=== PATIENT | male | born 1935 | race Asian ===

== ENCOUNTER 2018-08-15 10:56 | Emergency (ER) | payer OTHER ==
[~2018-08-15] VITALS: Ht 167.6 cm; Wt 70.0 kg
[2018-08-15 10:59] VITALS: Ht 167.6 cm; Wt 70.0 kg
[2018-08-15] MEDS ORDERED: TML25OP5 BOTH EYES (11:48)
[2018-08-15] MEDS ORDERED: PRED5DRO20 BOTH EYES (11:48)
[2018-08-15] MEDS ORDERED: ENAL5TAB PO (11:49)
[2018-08-15] MEDS ORDERED: CARB1TAB34 PO (11:50)
[2018-08-15] MEDS ORDERED: SIMV40TA2 PO (11:50)
[2018-08-15] MEDS ORDERED: LEVO25TA6 PO (11:50)
[2018-08-15] MEDS ORDERED: METF100010 PO (11:51)
[2018-08-15] MEDS ORDERED: INSU100I12 SQ (11:52)
[2018-08-15] MEDS ORDERED: KETOROLAC 30 MG INJ IM STA (12:09)
--- NOTE | 2018-08-15 12:19 | ERD ---
ER Documentation Chief Complaint Chief Complaint rt knee pain fell last night HPI This is an 83-year-old man with a history of osteoarthritis presenting with right knee pain x3 days. His and clerical adviser are at the bedside and state he had a fall yesterday onto his right side but he does recall the entire episode and there was no head or neck injury. Patient has been able to ambulate since the fall and denies any hip pain, swelling, deformity. Patient denies knee redness or swelling, denies fevers or chills, no headache or blurry vision, no chest pain or shortness of breath, no abdominal pain. ROS All systems reviewed and are negative except as per history of present illness. Medications Home Meds Active Scripts Lidocaine HCl/Menthol (Icy Hot 4%-1% Cream) 76.5 Gm Cream..g., 76.5 GM TP TID PRN for PAIN, #1 TUB Prov:KARAN YANCEY MD 08/15/18 Meloxicam* (Meloxicam*) 7.5 Mg Tablet, 7.5 MG PO DAILY PRN for PAIN, #30 TAB Prov:KARAN YANCEY MD 08/15/18 Reported Medications Insulin Lispro (Humalog Kwikpen U-100) 100 Unit/1 Ml Insuln.pen, 0 SQ BID, EA INJECT 20 UNITS-QAM AND 12 UNITS-QPM 08/15/18 Metformin Hcl* (Metformin Hcl*) 1,000 Mg Tablet, 1000 MG PO WITH BREAKFAST DINNE, #60 TAB 08/15/18 Simvastatin* (Zocor*) 40 Mg Tablet, 40 MG PO QHS, #30 TAB 08/15/18 Levothyroxine Sodium* (Levothyroxine Sodium*) 25 Mcg Tablet, 25 MCG PO BEFORE BREAKFAST, #30 TAB 08/15/18 Carbidopa/Levodopa (Carbidopa-Levodopa 25-100 Tab) 1 Each Tablet, 1 EACH PO TID, TAB 08/15/18 Enalapril Maleate* (Enalapril Maleate*) 5 Mg Tablet, 5 MG PO DAILY, TAB 08/15/18 Prednisolone Acetate* (Pred Forte*) 5 Ml Susp, 1 DROP BOTH EYES QID, EA 08/15/18 Timolol Maleate* (Timoptic*) 0.25%-5ml Opht, 1 DROP BOTH EYES BID, #1 EA 08/15/18 Allergies Allergies: Coded Allergies: No Known Allergy (Unverified , 08/15/18) PMhx/Soc Osteoarthritis, hypothyroidism, hypertension, diabetes mellitus History of Surgery: Yes (L KNEE, CATARRACT) Hx Neurological Disorder: Yes (PARKINSON'S) Hx Miscellaneous Medical Probl: Yes (DM) Hx Alcohol Use: No Hx Substance Use: No Hx Tobacco Use: No Smoking Status: Never smoker FmHx Family History: No diabetes Physical Exam Vitals Vital Signs Date Temp Pulse Resp B/P (MAP) Pulse Ox O2 O2 Flow FiO2 Time Delivery Rate 08/15/18 97.9 86 17 155/74 99 10:59 (101) Physical Exam Const: No acute distress, afebrile HEENT: Normocephalic atraumatic, no cervical spine deformity or tenderness, no goiter Resp: Clear to auscultation bilaterally Cardio: Regular rate and rhythm, no murmurs Skin: No petechiae or rashes, no hematomas, abrasions, lacerations noted Back: No midline or flank tenderness Ext: No cyanosis, or edema, calves symmetrical, varus deformity to the knees bilaterally with osteoarthritic changes and crepitus during flexion and extension at the knees. Knees are without erythema, contusions or abrasions. No knee effusions noted Neur: Awake and alert x3, no focal deficits or facial asymmetry Psych: Normal Mood and Affect Results 24 hrs Current Medications Medications Dose Sig/Juan Start Time Status Last (Trade) Ordered Route PRN Stop Time Admin Dose Reason Admin Ketorolac 30 mg ONCE STAT 08/15/18 DC 08/15/18 Tromethamine IM 12:09 12:30 (Toradol) 08/15/18 12:10 Procedures/MDM I administered Toradol 30 mg IM x1. X-ray right knee 3V Interpreted by me: Bones: No fracture Joints: Diffuse osteoarthritic changes Foreign body: None X-ray Pelvis 1V Interpreted by me: Bones: No fracture Joints: No dislocation Foreign body: None Oscar wrap was applied to the right knee circumferentially for comfort and supportive measures. Splint Assessment: Neurovascularly intact post splint placement with good fit. Patient feels much better at this time, and vital signs are normal, symptoms have improved. I did give strict instructions to return to the ED if symptoms continue or worsen, patient will otherwise follow-up with primary care physician. Patient understood instructions and agreed to plan. Disclaimer: Inadvertent spelling and grammatical errors are likely due to EHR/dictation software use and do not reflect on the overall quality of patient care. Also, please note that the electronic time recorded on this note does not necessarily reflect the actual time of the patient encounter. Departure Diagnosis: Primary Impression: Knee sprain Encounter type: initial encounter Involved ligament of knee: unspecified ligament Laterality: right Qualified Codes: S83.91XA - Sprain of unspecified site of right knee, initial encounter Additional Impression: Osteoarthritis Osteoarthritis location: knee Osteoarthritis type: primary Laterality: bilateral Qualified Codes: M17.0 - Bilateral primary osteoarthritis of knee Condition: KARAN Green MD August 15, 2018 12:19
[2018-08-15] MEDS ORDERED: LIDO76.53 TP (12:45)
[2018-08-15] MEDS ORDERED: MELO7.5T38 PO (12:45)
[2018-08-15 14:04] VITALS: BP 139/75; PULSE 72; RESP 18
== END 2018-08-15 14:14 | disposition home or self-care (01) ==
LOC: E/R 10:56
DX: S83.91XA Sprain of unspecified site of right knee, initial encounter (principal); M17.0 Bilateral primary osteoarthritis of knee; E03.9 Hypothyroidism, unspecified; E11.9 Type 2 diabetes mellitus without complications; I10 Essential (primary) hypertension; W18.39XA Other fall on same level, initial encounter; Y92.9 Unspecified place or not applicable; Z79.4 Long term (current) use of insulin
CPT/HCPCS: 72170; 73562; 96372; 99284; J1885

== ENCOUNTER 2018-10-03 21:33 | Inpatient (IN) | payer OTHER ==
[~2018-10-03] VITALS: Ht 167.6 cm; Wt 79.6 kg
[~2018-10-03 21:33] MED LIST: CARB1TAB34 PO; ENAL5TAB PO; INSU100I12 SQ; LEVO25TA6 PO; LIDO76.53 TP; MELO7.5T38 PO; METF100010 PO; PRED5DRO20 LEFT EYE; SIMV40TA2 PO; TML25OP5 BOTH EYES
[2018-10-03] MEDS ORDERED: SOD CHLORIDE 0.9% 1,000 ML IV STA (21:59)
[2018-10-03] MEDS ORDERED: ONDANSETRON 4 MG INJ IV STA (21:59)
[2018-10-03] MEDS ORDERED: VITA1CAP PO (22:59)
[2018-10-03] MEDS ORDERED: ASCO500C7 PO (22:59)
[2018-10-03] MEDS ORDERED: CHOL100062 PO (22:59)
[2018-10-03] MEDS ORDERED: OMEG-135 PO (22:59)
--- NOTE | 2018-10-03 23:39 | ERD ---
ER Documentation Chief Complaint Chief Complaint R889. AP, NVD X 1 DAY. HPI 83-year-old male presenting with 2 days of nausea, vomiting, and loose stools that are nonbloody. Vomiting is nonbloody and nonbilious. He states that when he vomits he has some left-sided abdominal pain. Otherwise he is not having any abdominal pain, dysuria, hematuria, fever or chills. No recent travel. No sick contacts. Denies any headache, dizziness, focal weakness or numbness. He is having normal urine output. ROS All systems reviewed and are negative except as per history of present illness. Medications Home Meds Active Scripts Lidocaine HCl/Menthol (Icy Hot 4%-1% Cream) 76.5 Gm Cream..g., 76.5 GM TP TID PRN for PAIN, #1 TUB Prov:KARAN YANCEY MD 08/15/18 Meloxicam* (Meloxicam*) 7.5 Mg Tablet, 7.5 MG PO DAILY PRN for PAIN, #30 TAB Prov:KARAN YANCEY MD 08/15/18 Reported Medications [place]-3 Fatty Acids/Fish Oil (Fish Oil 1,000 mg Capsule) 1 Each Capsule, 1 EACH PO DAILY, CAP 10/03/18 Ascorbic Acid* (Vitamin C*) 500 Mg Capsule.sa, 500 MG PO DAILY, CAP 10/03/18 Vitamin B Complex (Vitamin B Complex) 1 Each Capsule, 1 EACH PO DAILY, CAP 10/03/18 Cholecalciferol* (Vitamin D3*) 1,000 Unit Tablet, 1000 UNIT PO DAILY, TAB 10/03/18 Insulin Lispro (Humalog Kwikpen U-100) 100 Unit/1 Ml Insuln.pen, 0 SQ BID, EA INJECT 20 UNITS-QAM AND 12 UNITS-QPM 08/15/18 Metformin Hcl* (Metformin Hcl*) 1,000 Mg Tablet, 1000 MG PO WITH BREAKFAST DINNE, #60 TAB 08/15/18 Simvastatin* (Zocor*) 40 Mg Tablet, 40 MG PO QHS, #30 TAB 08/15/18 Levothyroxine Sodium* (Levothyroxine Sodium*) 25 Mcg Tablet, 25 MCG PO BEFORE BREAKFAST, #30 TAB 08/15/18 Carbidopa/Levodopa (Carbidopa-Levodopa 25-100 Tab) 1 Each Tablet, 1 EACH PO TID, TAB 08/15/18 Enalapril Maleate* (Enalapril Maleate*) 5 Mg Tablet, 5 MG PO DAILY, TAB 08/15/18 Prednisolone Acetate* (Pred Forte*) 5 Ml Susp, 1 DROP LEFT EYE QID, EA 08/15/18 Timolol Maleate* (Timoptic*) 0.25%-5ml Opht, 1 DROP BOTH EYES BID, #1 EA 08/15/18 Allergies Allergies: Coded Allergies: No Known Allergy (Unverified , 10/03/18) PMhx/Soc History of Surgery: Yes (RIGHT KNEE) Anesthesia Reaction: No Hx Neurological Disorder: Yes (PARKINSON'S) Hx Respiratory Disorders: No Hx Cardiac Disorders: No Hx Psychiatric Problems: No Hx Miscellaneous Medical Probl: Yes (Diabetes, hypertension, hypothyroidism) Hx Alcohol Use: No Hx Substance Use: No Hx Tobacco Use: No Smoking Status: Never smoker FmHx Family History: No diabetes Physical Exam Vitals Vital Signs Date Temp Pulse Resp B/P (MAP) Pulse Ox O2 O2 Flow FiO2 Time Delivery Rate 10/03/18 78 18 137/47 98 Nasal 2.0 23:29 (77) Cannula 10/03/18 98.1 74 19 169/96 96 21:42 (120) Physical Exam Const: No acute distress, well-appearing, nontoxic Head: Atraumatic Eyes: Normal Conjunctiva ENT: Normal External Ears, Nose and Mouth. Neck: Full range of motion. No meningismus. Resp: Clear to auscultation bilaterally Cardio: Regular rate and rhythm, no murmurs Abd: Soft, mild left lower quadrant tenderness to deep palpation without rebound or guarding. No pulsatile masses. non distended. Normal bowel sounds Skin: No petechiae or rashes Back: No midline or flank tenderness Ext: No cyanosis, or edema Neur: Awake and alert, no facial asymmetry, normal speech, following commands. strength and sensations intact to all 4 extremities Psych: Normal Mood and Affect Result Diagram: 10/03/18220610/03/182206 Results 24 hrs Laboratory Tests Test 10/03/18 22:07 White Blood Count 6.8 10^3/ul Red Blood Count 2.93 10^6/ul Hemoglobin 9.1 g/dl Hematocrit 27.6 % Mean Corpuscular Volume 94.2 fl Mean Corpuscular Hemoglobin 31.1 pg Mean Corpuscular Hemoglobin Concent 33.0 g/dl Red Cell Distribution Width 13.2 % Platelet Count 287 10^3/UL Mean Platelet Volume 10.1 fl Immature Granulocytes % 0.100 % Neutrophils % 66.6 % Lymphocytes % 20.2 % Monocytes % 11.5 % Eosinophils % 1.0 % Basophils % 0.6 % Nucleated Red Blood Cells % 0.0 /100WBC Immature Granulocytes # 0.010 10^3/ul Neutrophils # 4.6 10^3/ul Lymphocytes # 1.4 10^3/ul Monocytes # 0.8 10^3/ul Eosinophils # 0.1 10^3/ul Basophils # 0.0 10^3/ul Nucleated Red Blood Cells # 0.0 10^3/ul Sodium Level 140 mmol/L Potassium Level 4.8 mmol/L Chloride Level 102 mmol/L Carbon Dioxide Level 16 mmol/L Anion Gap 22 Blood Urea Nitrogen 61 mg/dl Creatinine 8.54 mg/dl Est Glomerular Filtrat Rate mL/min mL/min Glucose Level 76 mg/dl Calcium Level 11.0 mg/dl Total Bilirubin 0.3 mg/dl Direct Bilirubin 0.00 mg/dl Indirect Bilirubin 0.3 mg/dl Aspartate Amino Transf (AST/SGOT) 19 IU/L Alanine Aminotransferase (ALT/SGPT) 8 IU/L Alkaline Phosphatase 55 IU/L Troponin I 0.018 ng/ml Total Protein 7.1 g/dl Albumin 3.8 g/dl Globulin 3.30 g/dl Albumin/Globulin Ratio 1.15 Lipase 166 U/L Current Medications Medications Dose Sig/Juan Start Time Status Last (Trade) Ordered Route PRN Stop Time Admin Dose Reason Admin Sodium 1,000 ml @ Q1H STAT 10/03/18 DC 10/03/18 Chloride 1,000 mls/hr IV 21:59 22:35 10/03/18 22:58 Ondansetron 4 mg ONCE STAT 10/03/18 DC 10/03/18 HCl (Zofran IV 21:59 22:35 Inj) 10/03/18 22:00 Ondansetron 4 mg BRIDGE ORDER 10/04/18 HCl (Zofran PRN IV 00:00 Inj) NAUSEA/VOMITI 10/04/18 23:59 NG 650 mg ER BRIDGE 10/04/18 Acetaminophen PRN PO 00:00 (Tylenol .MILD PAIN 10/04/18 23:59 Tab) 1-3 OR TEMP Ascorbic 500 mg DAILY PO 10/04/18 UNV Acid 09:00 (Vitamin C) 1 tab TID PO 10/04/18 UNV Carbidopa/Lev 09:00 odopa (Sinemet (25/ 100)) 1,000 unit DAILY PO 10/04/18 UNV Cholecalcifer 09:00 ol (Vitamin D) Enalapril 5 mg DAILY PO 10/04/18 UNV Maleate 09:00 (Vasotec) 25 mcg BEFORE 10/04/18 UNV Levothyroxine BREAKFAST 07:00 Sodium PO (Synthroid) 1 drop QID LEFT 10/04/18 UNV Prednisolone EYE 00:30 Acetate (Pred-Forte 1%) Timolol 1 drop BID BOTH 10/04/18 UNV Maleate EYES 00:30 (Timoptic 0.25%) 40 mg QHS PO 10/04/18 UNV Miscellaneous 21:00 Information Procedures/[facility] EMERGENT LABS AND DIAGNOSTIC STUDIES: Lab Results above were reviewed and interpreted by me. CBC: no anemia or evidence of infection CMP: Acute renal failure with elevated BUN and creatinine and evidence of acidosis. No evidence of clinically significant electrolyte abnormality Lipase: no evidence of pancreatitis Troponin within normal limits, not indicative of cardiac ischemia UA: pending 12-lead EKG was interpreted by Robles Finney MD: Normal Sinus Rhythm with ventricular rate of 75 beats per minute Normal axis Normal intervals No acute ST or T wave changes suggestive of acute ischemia or STEMI. Radiology Results as interpreted by Radiology below were reviewed by SMandy Finney MD: Chest x-ray shows no acute abnormalities CT abdomen and pelvis: IMPRESSION: Extensive retroperitoneal and bilateral common iliac artery lymphadenopathy. No masses detected. Question lymphoma versus metastatic disease. These nodes are amendable to CT guided biopsy. Vascular calcifications. Fatty liver. Cholelithiasis. Multiple bilateral less than 3 mm nonobstructing renal calculi. Initial Nursing notes reviewed. Previous Medical Records requested via the Electronic Health Record. EMERGENCY DEPARTMENT COURSE / MEDICAL DECISION MAKING: Patient is presenting with nausea and vomiting with no evidence of acute surgical abdomen or any evidence of infection on work-up. Doubt ischemic bowel or aortic dissection. No evidence of ACS. Doubt acute neurologic pathology. Labs did show evidence of acute renal failure with elevated BUN and creatinine. IV fluids started in the ER. Patient will be admitted for further work-up and management. Critical Care Time: 40 minutes Treatments/Evaluations: Close monitoring and treatment of unstable vital signs, cardiorespiratory, and neurologic status, while maintaining tight balance of fluid, respiratory, and cardiac interventions. This time includes discussing the case with the patient and the patients family. This time does not include all procedures stated elsewhere in this record. This time also includes reviewing old records, labs and radiological studies. This time includes examining and re- examining the patient. Additionally, this time also includes arranging care with admitting and consulting physicians. Accepting Care Team: Current data and ongoing care discussed. Time: Time of admission Primary Provider: Dr. Reji Sierra Diagnosis: Primary Impression: Acute renal failure Acute renal failure type: unspecified Qualified Codes: N17.9 - Acute kidney failure, unspecified Additional Impression: Nausea vomiting and diarrhea Condition: Serious KATALINA FINNEY MD Oct 03, 2018 23:39
[2018-10-04] MEDS ORDERED: ONDANSETRON 4 MG INJ IV PRN ×2 (00:30)
[2018-10-04] MEDS ORDERED: morphine 2 MG INJ IV PRN (00:30)
[2018-10-04] MEDS ORDERED: ACETAMINOPHEN 325 MG TAB PO PRN ×2 (00:30)
[2018-10-04] MEDS ORDERED: NACL 0.9% 3 ML SYG IV SCH (00:30)
[2018-10-04] MEDS ORDERED: DOCUSATE SODIUM 100 MG CAP PO PRN (00:30)
[2018-10-04 01:42] VITALS: Ht 167.6 cm; Wt 79.6 kg
[2018-10-04 01:45] VITALS: BP 164/74; PULSE 76; RESP 18
[2018-10-04] MEDS: SOD CHLORIDE 0.9% 1,000 ML IV SCH ×3 (02:46→14:43)
[2018-10-04] MEDS: FAMOTIDINE 20 MG INJ IV SCH ×2 (02:46→08:27)
[2018-10-04] MEDS: HEPARIN 5,000 UNIT/1 ML VIAL SC SCH ×3 (02:55→21:00)
[2018-10-04] MEDS: TIMOLOL 0.25% 5 ML OPH BOTH EYES SCH ×3 (03:17→21:15)
[2018-10-04] MEDS: PREDNISOLONE ACET 1% 5 ML OPH LEFT EYE SCH ×5 (03:18→21:15)
[2018-10-04 05:29] VITALS: BP 149/67; PULSE 70
[2018-10-04] MEDS ORDERED: INSULIN LISPRO 100 UNIT/ML VIAL SC SCH (07:00)
[2018-10-04] MEDS: LEVOTHYROXINE 25 MCG TAB PO SCH (07:01)
[2018-10-04 07:46] VITALS: BP 178/81; PULSE 71; RESP 19
[2018-10-04] MEDS: CHOLECALCIFEROL 1,000 UNIT TAB PO SCH (08:27)
[2018-10-04] MEDS: CARBIDOPA/LEVODOPA (25/100) TAB PO SCH ×3 (08:28→21:15)
[2018-10-04] MEDS: ASCORBIC ACID 500 MG TAB PO SCH (08:28)
[2018-10-04] MEDS ORDERED: ENALAPRIL 5 MG TAB PO SCH (09:00)
[2018-10-04] MEDS: INSULIN ASPART [NOVOLOG] 3 ML PEN SC SCH ×3 (10:32→17:54)
--- NOTE | 2018-10-04 13:22 | CONS ---
Assessment/Plan Assessment/Plan Assessment/Plan (Daily) 1 acute Kidney injury possible due to Prerenal azotemia + ATN 2. Hypercalcemia possibly due to malignancy associated Hypercalcemia 3. Retroperitoneal lymphadenopathy rule out malignacy 4. H/O HTN with currently accelerated HTN 5. H/o DM II 6. Metabolic acidosis Plan: IVF NS at 100 cc/hr D/c Enalapril, will give Nifedipine Xl 30 mg po x1 dose now then 30mg po daily from tomorrow CT scan abdomen and pelvis showed extensive retroperitoneal and bilateral common iliac artery lymphadenopathy. This was suspicious for lymphoma versus metastatic disease. There was evidence of cholelithiasis. Multiple bilateral less than 3 mm nonobstructing renal calculi were identified. CT guided Biopsy of Retroperitoneal lymphadenopahty has been ordered to rule out malignancy Thanks for consultation , I will continue to follow up Consultation Date/Type/Reason Admit Date/Time Oct 03, 2018 at 23:36 Date of Consultation: Oct 04, 2018 Type of Consult NEPHROLOGY Reason for Consultation acute hyperkalemia, acute renal failure Requesting Provider: KWADWO NORRIS MD Date/Time of Note DATE: 10/04/18 TIME: 13:22 Hx of Present Illness 83-year-old male with a history of hypertension, type 2 diabetes mellitus, and Parkinson's disease, presented to the Emergency Room with 2 days of abdominal pain associated with nausea, vomiting and diarrhea. Labs were notable for BUN of 59 and creatinine of 8.3., ca 11 on admission . CBC showed a WBC of 6.9, hemoglobin of 9.4 and platelet count of 291,000. CAT scan of the abdomen and pelvis showed extensive retroperitoneal and bilateral common iliac artery lymphadenopathy. This was suspicious for lymphoma versus metastatic disease. There was evidence of cholelithiasis. Multiple bilateral less than 3 mm nonobstructing renal calculi were identified. Renal has been consulted for acute renal faiulre, Hypercalcemia and Pt is ordered to have CT guided Bx of Retroperitoneal lymph nodes Constitutional: no complaints Eyes: no complaints ENT: no complaints Respiratory: no complaints Cardiovascular: no complaints Gastrointestinal: pain, diarrhea, nausea, vomiting Genitourinary: no complaints Musculoskeletal: no complaints Skin: no complaints Neurologic: no complaints Endocrine: no complaints Lymphatic: no complaints Psychological: no complaints Immunologic: no complaints Past Medical History Medical History: diabetes, hypertension, other (hypertension, type 2 diabetes mellitus, and Parkinson's disease,) Home Meds Active Scripts Lidocaine HCl/Menthol (Icy Hot 4%-1% Cream) 76.5 Gm Cream..g., 76.5 GM TP TID PRN for PAIN, #1 TUB Prov:KARAN YANCEY MD 08/15/18 Meloxicam* (Meloxicam*) 7.5 Mg Tablet, 7.5 MG PO DAILY PRN for PAIN, #30 TAB Prov:KARAN YANCEY MD 08/15/18 Reported Medications [place]-3 Fatty Acids/Fish Oil (Fish Oil 1,000 mg Capsule) 1 Each Capsule, 1 EACH PO DAILY, CAP 10/03/18 Ascorbic Acid* (Vitamin C*) 500 Mg Capsule.sa, 500 MG PO DAILY, CAP 10/03/18 Vitamin B Complex (Vitamin B Complex) 1 Each Capsule, 1 EACH PO DAILY, CAP 10/03/18 Cholecalciferol* (Vitamin D3*) 1,000 Unit Tablet, 1000 UNIT PO DAILY, TAB 10/03/18 Insulin Lispro (Humalog Kwikpen U-100) 100 Unit/1 Ml Insuln.pen, 0 SQ BID, EA INJECT 20 UNITS-QAM AND 12 UNITS-QPM 08/15/18 Metformin Hcl* (Metformin Hcl*) 1,000 Mg Tablet, 1000 MG PO WITH BREAKFAST DINNE, #60 TAB 08/15/18 Simvastatin* (Zocor*) 40 Mg Tablet, 40 MG PO QHS, #30 TAB 08/15/18 Levothyroxine Sodium* (Levothyroxine Sodium*) 25 Mcg Tablet, 25 MCG PO BEFORE BREAKFAST, #30 TAB 08/15/18 Carbidopa/Levodopa (Carbidopa-Levodopa 25-100 Tab) 1 Each Tablet, 1 EACH PO TID, TAB 08/15/18 Prednisolone Acetate* (Pred Forte*) 5 Ml Susp, 1 DROP LEFT EYE QID, EA 08/15/18 Timolol Maleate* (Timoptic*) 0.25%-5ml Opht, 1 DROP BOTH EYES BID, #1 EA 08/15/18 Discontinued Reported Medications Enalapril Maleate* (Enalapril Maleate*) 5 Mg Tablet, 5 MG PO DAILY, TAB 08/15/18 Medications Current Medications Ascorbic Acid (Vitamin C) 500 mg DAILY PO Last administered on 10/04/18at 08:28; Admin Dose 500 MG; Start 7/11/19 at 09:00 Carbidopa/Levodopa (Sinemet (25/ 100)) 1 tab TID PO Last administered on 10/04/18 08:28; Admin Dose 1 TAB; Start 10/04/18 at 09:00 Cholecalciferol (Vitamin D) 1,000 unit DAILY PO Last administered on 10/04/18 08:27; Admin Dose 1,000 UNIT; Start 10/04/18 at 09:00 Levothyroxine Sodium (Synthroid) 25 mcg BEFORE BREAKFAST PO Last administered on 10/04/18 07:01; Admin Dose 25 MCG; Start 10/04/18 at 07:00 Prednisolone Acetate (Pred-Forte 1%) 1 drop QID LEFT EYE ; Start 10/04/18 at 00:30 Timolol Maleate (Timoptic 0.25%) 1 drop BID BOTH EYES Last administered on 10/04/18 08:51; Admin Dose 1 DROP; Start 10/04/18 at 00:30 Sodium Chloride 1,000 ml @ 100 mls/hr Q10H IV Last administered on 10/04/18 02:46; Admin Dose 100 MLS/HR; Start 10/04/18 at 00:22 IV Flush (NS 3 ml) 3 ml PER PROTOCOL IV Last administered on 10/04/18 08:32; Admin Dose 3 ML; Start 10/04/18 at 00:30 Ondansetron HCl (Zofran Inj) 4 mg Q6H PRN IV NAUSEA/VOMITING; Start 10/04/18 at 00:30 Acetaminophen (Tylenol Tab) 650 mg Q6H PRN PO .PAIN 1-3 OR TEMP; Start 10/04/18 at 00:30 Morphine Sulfate (morphine) 2 mg Q4H PRN IV .PAIN 7-10; Start 10/04/18 at 00:30 Docusate Sodium (Colace) 100 mg Q12H PRN PO .CONSTIPATION; Start 10/04/18 at 00:30 Famotidine (Pepcid Iv) 20 mg DAILY IV Last administered on 10/04/18 08:27; Admin Dose 20 MG; Start 10/04/18 at 00:30 Heparin Sodium (Porcine) (Heparin (5000 Units/1ml)) 5,000 unit Q12 SC Last administered on 7/11/19at 08:30; Admin Dose 5,000 UNIT; Start 10/04/18 at 00:30 Atorvastatin Calcium (Lipitor) 20 mg DAILY@21 PO ; Start 10/04/18 at 21:00 Insulin Aspart (Novolog Insulin Pen) 5 unit AC MEALS SC Last administered on 10/04/18at 10:32; Admin Dose 5 UNIT; Start 10/04/18 at 07:00 Allergies: Coded Allergies: No Known Allergy (Unverified , 10/03/18) Past Surgical History Past Surgical Hx: no surgical history Family History Significant Family History: no pertinent family hx Social History Alcohol Use: none Smoking Status: Never smoker Drug Use: none Exam/Review of Systems Exam Vitals Vital Signs Date Temp Pulse Resp B/P (MAP) Pulse Ox O2 O2 Flow FiO2 Time Delivery Rate 10/04/18 98.3 71 19 178/81 97 Room Air 07:46 (113) 10/04/18 21 02:57 10/03/18 2.0 23:29 Intake and Output 10/03/18 10/03/18 10/04/18 1515:00 23:00 07:00 IntakeIntake Total 225 ml OutputOutput Total 225 ml BalanceBalance 0 ml Constitutional: alert Psych: no complaints Head: normocephalic Eyes: nl conjunctiva ENMT: nl external ears & nose Neck: supple, non-tender Respiratory: clear to auscultation, normal air movement, diminished breath sounds Cardiovascular: regular rate and rhythm Gastrointestinal: soft, non-tender, tender (TTP in Right flank region, No reboudng, no guarding ) Musculoskeletal: nl extremities to inspection Extremities: normal pulses Neurological: [employer] II-XII intact, nl mental status, nl speech, nl strength Skin: nl turgor Lymph: nl lymph nodes Results Result Diagram: 10/04/18 0453 10/04/18 0453 Results 24hrs Laboratory Tests Test 10/03/18 22:07 10/04/18 04:53 10/04/18 08:23 10/04/18 10:21 White Blood Count 6.8 6.9 Red Blood Count 2.93 L 3.04 L Hemoglobin 9.1 L 9.4 L Hematocrit 27.6 L 28.5 L Mean Corpuscular 94.2 93.8 Volume Mean Corpuscular 31.1 30.9 Hemoglobin Mean Corpuscular 33.0 33.0 Hemoglobin Concent Red Cell 13.2 13.2 Distribution Width Platelet Count 287 291 Mean Platelet Volume 10.1 10.6 H Immature 0.100 0.300 Granulocytes % Neutrophils % 66.6 67.5 Lymphocytes % 20.2 18.2 Monocytes % 11.5 H 12.6 H Eosinophils % 1.0 0.7 Basophils % 0.6 0.7 Nucleated Red Blood 0.0 0.0 Cells % Immature 0.010 0.020 Granulocytes # Neutrophils # 4.6 4.7 Lymphocytes # 1.4 1.3 Monocytes # 0.8 0.9 Eosinophils # 0.1 0.1 Basophils # 0.0 0.1 Nucleated Red Blood 0.0 0.0 Cells # Sodium Level 140 140 Potassium Level 4.8 4.9 Chloride Level 102 104 Carbon Dioxide Level 16 L 15 L Anion Gap 22 H 21 H Blood Urea Nitrogen 61 H 59 H Creatinine 8.54 H 8.31 H Est Glomerular Filtrat Rate mL/min Glucose Level 76 73 Calcium Level 11.0 H 10.3 H Total Bilirubin 0.3 Direct Bilirubin 0.00 Indirect Bilirubin 0.3 Aspartate Amino 19 Transf (AST/SGOT) Alanine 8 L Aminotransferase (AL T/SGPT) Alkaline Phosphatase 55 Troponin I 0.018 Total Protein 7.1 Albumin 3.8 Globulin 3.30 H Albumin/Globulin 1.15 Ratio Lipase 166 Prothrombin Time 13.2 Prothrombin Time 1.0 Ratio INR International 0.99 Normalized Ratio Hemoglobin A1c 6.7 H Thyroid Stimulating 2.200 Hormone (TSH) Bedside Glucose 92 105 Test 10/04/18 12:48 Bedside Glucose 93 Medications Medication Current Medications Ascorbic Acid (Vitamin C) 500 mg DAILY PO Last administered on 10/04/18 08:28; Admin Dose 500 MG; Start 10/04/18 at 09:00 Carbidopa/Levodopa (Sinemet (25/ 100)) 1 tab TID PO Last administered on 10/04/18 08:28; Admin Dose 1 TAB; Start 10/04/18 at 09:00 Cholecalciferol (Vitamin D) 1,000 unit DAILY PO Last administered on 10/04/18 08:27; Admin Dose 1,000 UNIT; Start 10/04/18 at 09:00 Levothyroxine Sodium (Synthroid) 25 mcg BEFORE BREAKFAST PO Last administered on 10/04/18 07:01; Admin Dose 25 MCG; Start 10/04/18 at 07:00 Prednisolone Acetate (Pred-Forte 1%) 1 drop QID LEFT EYE ; Start 10/04/18 at 00:30 Timolol Maleate (Timoptic 0.25%) 1 drop BID BOTH EYES Last administered on 10/04/18 08:51; Admin Dose 1 DROP; Start 10/04/18 at 00:30 Sodium Chloride 1,000 ml @ 100 mls/hr Q10H IV Last administered on 10/04/18 02:46; Admin Dose 100 MLS/HR; Start 10/04/18 at 00:22 IV Flush (NS 3 ml) 3 ml PER PROTOCOL IV Last administered on 10/04/18 08:32; Admin Dose 3 ML; Start 10/04/18 at 00:30 Ondansetron HCl (Zofran Inj) 4 mg Q6H PRN IV NAUSEA/VOMITING; Start 10/04/18 at 00:30 Acetaminophen (Tylenol Tab) 650 mg Q6H PRN PO .PAIN 1-3 OR TEMP; Start 10/04/18 at 00:30 Morphine Sulfate (morphine) 2 mg Q4H PRN IV .PAIN 7-10; Start 10/04/18 at 00:30 Docusate Sodium (Colace) 100 mg Q12H PRN PO .CONSTIPATION; Start 10/04/18 at 00:30 Famotidine (Pepcid Iv) 20 mg DAILY IV Last administered on 10/04/18 08:27; Admin Dose 20 MG; Start 10/04/18 at 00:30 Heparin Sodium (Porcine) (Heparin (5000 Units/1ml)) 5,000 unit Q12 SC Last administered on 10/04/18 08:30; Admin Dose 5,000 UNIT; Start 10/04/18 at 00:30 Atorvastatin Calcium (Lipitor) 20 mg DAILY@21 PO ; Start 10/04/18 at 21:00 Insulin Aspart (Novolog Insulin Pen) 5 unit AC MEALS SC Last administered on 10/04/18 10:32; Admin Dose 5 UNIT; Start 10/04/18 at 07:00 LAUREN ARANA MD Oct 04, 2018 13:22
[2018-10-04] MEDS ORDERED: NIFEdipine (XL) 30 MG TAB PO ONE (13:30)
--- NOTE | 2018-10-04 15:34 | HP ---
DATE OF ADMISSION: 10/03/2018 CHIEF COMPLAINT: Abdominal pain, nausea, vomiting and diarrhea. HISTORY OF PRESENT ILLNESS: An 83-year-old male with a history of hypertension, type 2 diabetes treasure itus, and Parkinson's disease, presented to the Emergency Room with 2 days of abdominal pain associat ed with nausea, vomiting and diarrhea. The patient denies hematemesis. No bright red blood per rect um or melena. According to family members there is no history of kidney problems. Initial evaluatio n revealed evidence of renal failure with a BUN of 59 and creatinine of 8.3. Sodium was 4.9 and bica rbonate was 15. CBC showed a WBC of 6.9, hemoglobin of 9.4 and platelet count of 291,000. CAT scan of the abdomen and pelvis showed extensive retroperitoneal and bilateral common iliac artery lymphade nopathy. This was suspicious for lymphoma versus metastatic disease. There was evidence of cholelit hiasis. Multiple bilateral less than 3 mm nonobstructing renal calculi were identified. PAST MEDICAL HISTORY: 1. Hypertension. 2. Type 2 diabetes mellitus. 3. Hyperlipidemia. 4. Parkinson's disease. 5. Glaucoma. 6. Hypothyroidism. MEDICATIONS PRIOR TO ADMISSION: 1. Enalapril 5 mg daily. 2. Fish oil. 3. Simvastatin. 4. Carbidopa/levodopa. 5. Meloxicam. 6. Prednisolone eyedrops. 7. Timolol eyedrop. 8. Insulin. 9. Levothyroxine. 10. Metformin. 11. Ascorbic acid. 12. Vitamin D. 13. Vitamin B supplements. SOCIAL HISTORY: The patient lives at home. He denies tobacco or alcohol use. PHYSICAL EXAMINATION: GENERAL: Well-developed, well-nourished elderly male who is in no apparent distress. VITAL SIGNS: Blood pressure of 178/81, pulse 71. He is afebrile. HEENT: Extraocular muscles intact. Pupils are equal and reactive to light bilaterally. Sclerae are anicteric. Oropharynx is clear and moist. NECK: Supple, no JVD, no carotid bruits. LUNGS: Clear to auscultation bilaterally. CARDIAC: Regular rate and rhythm. No murmurs or gallops. ABDOMEN: Soft, nontender and nondistended, normoactive bowel sounds. EXTREMITIES: No clubbing, cyanosis, or edema. NEUROLOGICAL: Grossly nonfocal. ASSESSMENT: 1. An 83-year-old male with nausea, vomiting and diarrhea. 2. Acute kidney injury versus progressive chronic kidney disease, possibly approaching hemodialysis. 3. Metabolic acidosis. 4. Hypertension. 5. Type 2 diabetes mellitus. 6. Parkinson disease. 7. Hypothyroidism. 8. Diffuse retroperitoneal lymphadenopathy. Rule out lymphoma versus metastatic disease. PLAN: 1. Admit to med/surg. 2. IV fluid hydration. Monitor renal function closely. 3. Nephrology consultation was requested. 4. Proceed with CT-guided biopsy of retroperitoneal lymph node. Dictated By: KWADWO NORRIS MD SK/NTS Conf#: [id number] DID#: [id number] CC: VALENTINO MENEZES MD; LAUREN ARANA MD;*EndCC*
[2018-10-04 15:37] VITALS: BP 137/85; PULSE 73; RESP 19
[2018-10-04] MEDS: CITRIC ACID/NA CITRATE 30 ML CUP PO SCH ×2 (16:24→21:15)
[2018-10-04 19:26] VITALS: BP 158/72; PULSE 69; RESP 18
[2018-10-04] MEDS ORDERED: NON-FORMULARY/PATIENT OWN MED (Simvastatin* (Zocor*) 40 MG) PO SCH (21:00)
[2018-10-04] MEDS ORDERED: ATORVASTATIN 20 MG TAB PO SCH (21:00)
[2018-10-05] MEDS: SOD CHLORIDE 0.9% 1,000 ML IV SCH (01:15)
[2018-10-05 01:18] VITALS: BP 141/65; PULSE 73; RESP 18
[2018-10-05] MEDS: LEVOTHYROXINE 25 MCG TAB PO SCH (06:17)
[2018-10-05 07:43] VITALS: BP 160/74; PULSE 69; RESP 19
[2018-10-05] MEDS: INSULIN ASPART [NOVOLOG] 3 ML PEN SC SCH ×2 (08:00→13:30)
[2018-10-05] MEDS: HEPARIN 5,000 UNIT/1 ML VIAL SC SCH (08:06)
[2018-10-05] MEDS ORDERED: NIFEdipine (XL) 30 MG TAB PO SCH (09:00)
[2018-10-05] MEDS ORDERED: LIDOCAINE 1% (MDV) 20 ML INJ ONE (09:23)
[2018-10-05] MEDS ORDERED: MIDAZOLAM 1 MG/ML 2 ML INJ ONE (10:41)
[2018-10-05] MEDS ORDERED: SOD CHLORIDE 0.9% 500 ML ONE (10:41)
[2018-10-05] MEDS ORDERED: FENTAnyl 50 MCG/ML VIAL ONE (10:41)
[2018-10-05] MEDS ORDERED: INSU100I12 SQ (11:05)
[2018-10-05] MEDS ORDERED: NIFE30TA2 PO (11:05)
[2018-10-05] MEDS ORDERED: BICS PO (11:05)
--- NOTE | 2018-10-05 11:06 | PDOCDIS ---
Discharge Instructions CONDITION [id number] Patient Condition: [id number] Good HOME CARE INSTRUCTIONS: [id number] Diet Instructions: [id number] Activity Restrictions: Pdced9g No Restrictions FOLLOW UP/APPOINTMENTS Follow-up Plan pcp [address] Rogers 1 week KWADWO NORRIS MD Oct 05, 2018 11:06
--- NOTE | 2018-10-05 11:13 | PN ---
Date/Time of Note Date/Time of Note DATE: 10/05/18 TIME: 11:11 Subjective Doing well. No further nausea vomiting. No abdominal pain. No diarrhea Objective Vitals Vital Signs Date Temp Pulse Resp B/P (MAP) Pulse Ox O2 O2 Flow FiO2 Time Delivery Rate 10/05/18 98.2 69 19 160/74 97 07:43 (102) 10/04/18 Room Air 15:37 10/04/18 21 02:57 10/03/18 2.0 23:29 Intake and Output 10/04/18 10/04/18 10/05/18 1515:00 23:00 07:00 IntakeIntake Total 1135 ml 360 ml 1380 ml OutputOutput Total 200 ml 950 ml BalanceBalance 935 ml 360 ml 430 ml Clear to auscultation bilaterally Regular rate and rhythm Soft obese nontender nondistended normoactive bowel sounds No edema Nonfocal Results Result Diagram: 10/04/18 0453 10/05/18 0535 Medications Medications Current Medications Ascorbic Acid (Vitamin C) 500 mg DAILY PO Last administered on 10/04/18 08:28; Admin Dose 500 MG; Start 10/04/18 at 09:00 Carbidopa/Levodopa (Sinemet (25/ 100)) 1 tab TID PO Last administered on 21:15; Admin Dose 1 TAB; Start 10/04/18 at 09:00 Cholecalciferol (Vitamin D) 1,000 unit DAILY PO Last administered on 10/04/18 08:27; Admin Dose 1,000 UNIT; Start 10/04/18 at 09:00 Levothyroxine Sodium (Synthroid) 25 mcg BEFORE BREAKFAST PO Last administered on 10/04/18 07:01; Admin Dose 25 MCG; Start 10/04/18 at 07:00 Prednisolone Acetate (Pred-Forte 1%) 1 drop QID LEFT EYE Last administered on 10/04/18 21:15; Admin Dose 1 DROP; Start 10/04/18 at 00:30 Timolol Maleate (Timoptic 0.25%) 1 drop BID BOTH EYES Last administered on 10/04/18 21:15; Admin Dose 1 DROP; Start 10/04/18 at 00:30 Sodium Chloride 1,000 ml @ 100 mls/hr Q10H IV Last administered on 10/05/18 01:15; Admin Dose 100 MLS/HR; Start 10/04/18 at 00:22 IV Flush (NS 3 ml) 3 ml PER PROTOCOL IV Last administered on 10/04/18 08:32; Admin Dose 3 ML; Start 10/04/18 at 00:30 Ondansetron HCl (Zofran Inj) 4 mg Q6H PRN IV NAUSEA/VOMITING; Start 10/04/18 at 00:30 Acetaminophen (Tylenol Tab) 650 mg Q6H PRN PO .PAIN 1-3 OR TEMP; Start 10/04/18 at 00:30 Morphine Sulfate (morphine) 2 mg Q4H PRN IV .PAIN 7-10; Start 10/04/18 at 00:30 Docusate Sodium (Colace) 100 mg Q12H PRN PO .CONSTIPATION; Start 10/04/18 at 0 0:30 Famotidine (Pepcid Iv) 20 mg DAILY IV Last administered on 10/04/18 08:27; Admin Dose 20 MG; Start 10/04/18 at 00:30 Heparin Sodium (Porcine) (Heparin (5000 Units/1ml)) 5,000 unit Q12 SC Last administered on 10/04/18 08:30; Admin Dose 5,000 UNIT; Start 10/04/18 at 00:30 Atorvastatin Calcium (Lipitor) 20 mg DAILY@21 PO Last administered on 10/04/18 21:15; Admin Dose 20 MG; Start 10/04/18 at 21:00 Insulin Aspart (Novolog Insulin Pen) 5 unit AC MEALS SC Last administered on 10/04/18 17:54; Admin Dose 5 UNIT; Start 10/04/18 at 07:00 Citric Acid/ Sodium Citrate (Bicitra) 30 ml TID PO Last administered on 10/04/18 21:15; Admin Dose 30 ML; Start 10/04/18 at 14:00 Nifedipine (Procardia Xl) 30 mg DAILY PO ; Start 10/05/18 at 09:00 VTE Prophylaxis Risk score (from Nsg)>0 risk: 4 SCD applied (from Nsg): Yes Lines/Catheters IV Catheter Type: Saline Lock Armendariz in Place: No Assessment/Plan Assessment/Plan 83-year-old male with 2 days of nausea, vomiting, diarrhea, resolved Stage V chronic kidney disease. There is no noted improvement with IV fluid hydration Long-standing hypertension Type 2 diabetes mellitus Retroperitoneal lymphadenopathy Parkinson's disease Proceed with CT-guided biopsy of intra-abdominal lymph node Discharge planning home if okay with Dr. Rogers Patient is approaching hemodialysis I spent a long time with multiple family members at the bedside and answered all their questions. KWADWO NORRIS MD Oct 05, 2018 11:13
--- NOTE | 2018-10-05 12:07 | CONS ---
Assessment/Plan Assessment/Plan Assessment/Plan (Daily) 1 acute Kidney injury possible due to Prerenal azotemia + ATN 2. Hypercalcemia possibly due to malignancy associated Hypercalcemia 3. Retroperitoneal lymphadenopathy rule out malignacy 4. H/O HTN with currently accelerated HTN 5. H/o DM II 6. Metabolic acidosis Plan: IVF NS at 100 cc/hr, BUN/Cr 72/8.18 D/swati Enalapril, Nifedipine Xl 30mg PO daily CT scan abdomen and pelvis showed extensive retroperitoneal and bilateral common iliac artery lymphadenopathy. This was suspicious for lymphoma versus metastatic disease. There was evidence of cholelithiasis. Multiple bilateral less than 3 mm nonobstructing renal calculi were identified. CT guided Biopsy of Retroperitoneal lymphadenopahty has been ordered to rule out malignancy Hypercalcemia work up today Follow up with me in clinic in 1 week Consultation Date/Type/Reason Admit Date/Time Oct 03, 2018 at 23:36 Initial Consult Date 10/04/18 Type of Consult NEPHROLOGY Requesting Provider: KWADWO NORRIS MD Date/Time of Note DATE: 10/05/18 TIME: 12:07 Exam/Review of Systems Exam Vitals Vital Signs Date Temp Pulse Resp B/P (MAP) Pulse Ox O2 O2 Flow FiO2 Time Delivery Rate 10/05/18 98.2 69 19 160/74 97 07:43 (102) 10/04/18 Room Air 15:37 10/04/18 21 02:57 10/03/18 2.0 23:29 Intake and Output 10/04/18 10/04/18 10/05/18 1515:00 23:00 07:00 IntakeIntake Total 1135 ml 360 ml 1380 ml OutputOutput Total 200 ml 950 ml BalanceBalance 935 ml 360 ml 430 ml Exam Constitutional: alert, awake, no acute distress Respiratory: clear to auscultation, normal air movement, diminished breath sounds Cardiovascular: regular rate and rhythm Gastrointestinal: soft, non-tender, tender (TTP in Right flank region, No reboudng, no guarding ) Musculoskeletal: nl extremities to inspection Extremities: normal pulses Neurological: 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 II-XII intact, nl mental status, nl speech, nl strength Results Result Diagram: 10/04/18 0453 10/05/18 0535 Results 24hrs Laboratory Tests Test 10/04/18 12:48 10/04/18 14:27 10/04/18 14:33 10/04/18 17:48 Bedside Glucose 93 107 Urine Eosinophils % 0.0 Urine Random 188.00 Creatinine Urine Random Sodium 103 H Urine 0.20 Protein/Creatinine Ratio Urine Total Protein 38.0 H Prothrombin Time 13.1 Prothrombin Time 1.0 Ratio INR International 0.98 Normalized Ratio Activated 35.0 Partial Thromboplast Time Test 10/05/18 05:35 10/05/18 08:13 Sodium Level 137 Potassium Level 4.9 Chloride Level 101 Carbon Dioxide Level 20 L Anion Gap 16 H Blood Urea Nitrogen 72 H Creatinine 8.18 H Est Glomerular Filtrat Rate mL/min Glucose Level 153 Uric Acid 10.2 H Calcium Level 10.0 Creatine Kinase 128 Bedside Glucose 191 Medications Medication Current Medications Ascorbic Acid (Vitamin C) 500 mg DAILY PO Last administered on 10/04/18 08:28; Admin Dose 500 MG; Start 10/04/18 at 09:00 Carbidopa/Levodopa (Sinemet (25/ 100)) 1 tab TID PO Last administered on 10/04/18 21:15; Admin Dose 1 TAB; Start 10/04/18 at 09:00 Cholecalciferol (Vitamin D) 1,000 unit DAILY PO Last administered on 10/04/18 08:27; Admin Dose 1,000 UNIT; Start 10/04/18 at 09:00 Levothyroxine Sodium (Synthroid) 25 mcg BEFORE BREAKFAST PO Last administered on 10/04/18 07:01; Admin Dose 25 MCG; Start 10/04/18 at 07:00 Prednisolone Acetate (Pred-Forte 1%) 1 drop QID LEFT EYE Last administered on 10/04/18 21:15; Admin Dose 1 DROP; Start 10/04/18 at 00:30 Timolol Maleate (Timoptic 0.25%) 1 drop BID BOTH EYES Last administered on 10/04/18 21:15; Admin Dose 1 DROP; Start 10/04/18 at 00:30 Sodium Chloride 1,000 ml @ 100 mls/hr Q10H IV Last administered on 10/05/18 01:15; Admin Dose 100 MLS/HR; Start 10/04/18 at 00:22 IV Flush (NS 3 ml) 3 ml PER PROTOCOL IV Last administered on 10/04/18 08:32; Admin Dose 3 ML; Start 10/04/18 at 00:30 Ondansetron HCl (Zofran Inj) 4 mg Q6H PRN IV NAUSEA/VOMITING; Start 10/04/18 at 00:30 Acetaminophen (Tylenol Tab) 650 mg Q6H PRN PO .PAIN 1-3 OR TEMP; Start 10/04/18 at 00:30 Morphine Sulfate (morphine) 2 mg Q4H PRN IV .PAIN 7-10; Start 10/04/18 at 00:30 Docusate Sodium (Colace) 100 mg Q12H PRN PO .CONSTIPATION; Start 10/04/18 at 00:30 Famotidine (Pepcid Iv) 20 mg DAILY IV Last administered on 10/04/18at 08:27; Admin Dose 20 MG; Start 10/04/18 at 00:30 Heparin Sodium (Porcine) (Heparin (5000 Units/1ml)) 5,000 unit Q12 SC Last administered on 10/04/18at 08:30; Admin Dose 5,000 UNIT; Start 10/04/18 at 00:30 Atorvastatin Calcium (Lipitor) 20 mg DAILY@21 PO Last administered on 10/04/18at 21:15; Admin Dose 20 MG; Start 10/04/18 at 21:00 Insulin Aspart (Novolog Insulin Pen) 5 unit AC MEALS SC Last administered on 10/04/18at 17:54; Admin Dose 5 UNIT; Start 10/04/18 at 07:00 Citric Acid/ Sodium Citrate (Bicitra) 30 ml TID PO Last administered on 10/04/18at 21:15; Admin Dose 30 ML; Start 10/04/18 at 14:00 Nifedipine (Procardia Xl) 30 mg DAILY PO ; Start 10/05/18 at 09:00 LAUREN ARANA MD Oct 05, 2018 12:07
[2018-10-05] MEDS: CARBIDOPA/LEVODOPA (25/100) TAB PO SCH ×2 (13:00→13:27)
[2018-10-05] MEDS: PREDNISOLONE ACET 1% 5 ML OPH LEFT EYE SCH ×2 (13:00→13:28)
[2018-10-05] MEDS: CITRIC ACID/NA CITRATE 30 ML CUP PO SCH ×2 (13:00→13:27)
[2018-10-05 13:13] VITALS: BP 178/86; PULSE 79; RESP 17
[2018-10-05] MEDS: ASCORBIC ACID 500 MG TAB PO SCH (13:27)
[2018-10-05] MEDS: FAMOTIDINE 20 MG INJ IV SCH (13:27)
[2018-10-05] MEDS: CHOLECALCIFEROL 1,000 UNIT TAB PO SCH (13:27)
[2018-10-05] MEDS: TIMOLOL 0.25% 5 ML OPH BOTH EYES SCH (13:28)
[2018-10-05 16:00] VITALS: BP 158/82; PULSE 74
--- NOTE | 2018-10-13 04:01 | DS ---
DATE OF ADMISSION: 10/03/2018 DATE OF DISCHARGE: 10/05/2018 DISCHARGE DIAGNOSES: 1. An 83-year-old male with nausea, vomiting and diarrhea, resolved. 2. Stage V chronic kidney disease. 3. Longstanding hypertension. 4. Type 2 diabetes mellitus. 5. Retroperitoneal lymphadenopathy, status post CT-guided biopsy. 6. Parkinson's disease. HOSPITAL COURSE: An 83-year-old male with a history of longstanding hypertension and type 2 diabetes mellitus presented to emergency room with complaint of nausea, vomiting, and diarrhea. The patient has mild abdominal pain. A CAT scan of the abdomen and pelvis shows extensive retroperitoneal and bi lateral common iliac artery lymphadenopathy, no masses were detected. This finding was suspicious fo r lymphoma versus metastatic disease. The patient was found to have a markedly elevated BUN and creatinine of 72 and 8.2. He was seen in c onsultation by Dr. Rogers. The patient was also noted to have elevated calcium of 11. This improved to 10 with IV fluid hydration. There was no significant improvement in renal function despite 3 days of IV fluid hydration. The case was discussed with Dr. Rogers. The patient was in a stable conditio n for discharge to home with close followup as outpatient. He underwent a CT-guided biopsy of the in tra-abdominal lymph node after I had an extensive conversation with multiple family members. ANDREY inh ibitor was discontinued. He was started on nifedipine for his hypertension. Meloxicam and metformin were also discontinued due to renal failure. MEDICATIONS ON DISCHARGE: Include the followin. Bicitra 30 mL t.i.d. 2. Nifedipine 30 mg daily. 3. Ascorbic acid 500 mg daily. 4. Carbidopa/levodopa 1 tablet t.i.d. 5. Levothyroxine 25 mcg daily. 6. Simvastatin 40 mg at bedtime. 7. Timolol eyedrop. 8. Lispro insulin was decreased to 20 units subq daily. DISCHARGE FOLLOWUP: The patient will follow up with PCP and Dr. Rogers as outpatient. Dictated By: KWADWO ALCANTARA/YUNIEL Conf#: [id number] DID#: [id number] CC: VALENTINO MENEZES MD;*EndCC*
== END 2018-10-05 17:00 | disposition home health service (06) | DRG 674 ==
LOC: E/R 21:33 → 2NE 23:36
PROVIDERS: ADMIT Internal Medicine; ATTEND Internal Medicine
PROC: 07BD3ZX Excision of Aortic Lymphatic, Percutaneous Approach, Diagnostic (ICD-10-PCS; principal; 2018-10-05)
DX: N17.0 Acute kidney failure with tubular necrosis (principal); E87.2 Acidosis; E83.52 Hypercalcemia; K80.20 Calculus of gallbladder without cholecystitis without obstruction; G20 Parkinson's disease; E11.9 Type 2 diabetes mellitus without complications; E03.9 Hypothyroidism, unspecified; R59.0 Localized enlarged lymph nodes; N18.5 Chronic kidney disease, stage 5; I12.9 Hypertensive chronic kidney disease with stage 1 through stage 4 chronic kidney disease, or unspecified chronic kidney disease
CPT/HCPCS: 36415; 71045; 74176; 77012; 80048; 80053; 81001; 81003; 82306; 82550; 82570; 82652; 82962; 83036; 83690; 83970; 84300; 84443; 84484; 84560; 85025; 85610; 85730; 86021; 86038; 86226; 87075; 88305; 88313; 89190; 93005; 96374; J1644; J1815; J2250; J2405; J3010; J7030; J7040

== ENCOUNTER 2018-10-21 23:06 | Observation (INO) | payer OTHER, MEDICAID ==
[~2018-10-21] VITALS: Ht 165.1 cm; Wt 78.5 kg
[~2018-10-21 23:06] MED LIST changes: +ACET-141 PO; +ASCO500C7 PO; +BICS PO; +CARB1TAB46 PO; +CHOL100062 PO; +DOCU-144 PO; -ENAL5TAB PO; +MAGN400T28 PO; -MELO7.5T38 PO; -METF100010 PO; +NAPR-685 PO; +NIFE30TA2 PO; +NIFE30TA23 PO; +OMEG-135 PO; +SIMV40TA3 PO; +SODI650T PO; +VITA1CAP PO
[2018-10-21] MEDS ORDERED: ASPIRIN 81 MG TAB PO STA (23:20)
[2018-10-21] MEDS ORDERED: SOD CHLORIDE 0.9% 500 ML IV STA (23:20)
[2018-10-22] MEDS ORDERED: ACETAMINOPHEN 325 MG TAB PO PRN (01:00)
[2018-10-22] MEDS ORDERED: ONDANSETRON 4 MG INJ IV PRN (01:00)
--- NOTE | 2018-10-22 01:00 | ERD ---
ER Documentation Chief Complaint Chief Complaint bib ra from home for pressure like chest pain x 1 day HPI 83-year-old male who presents emergency with chest pain for approximately 2 to 3 days. Describes it as pressure-like and central, slight pleuritic component. Moderate symptoms. Patient was recently hospitalized with nausea vomiting and diarrhea. He was diagnosed with possible pelvic lymphadenopathy. He does not know the results of the biopsy. They are concerned for possible lymphoma. Patient denies any calf pain or unilateral swelling. No prior history of cardiac disease. He took aspirin prior to arrival. ROS All systems reviewed and are negative except as per history of present illness. Medications Home Meds Active Scripts Citric Acid/Sodium Citrate* (Bicitra* (PEDIATRIC)) 1 Meq/Ml Soln, 30 ML PO TID for 30 Days Prov:KWADWO NORRIS MD 10/05/18 Nifedipine (Procardia Xl) 30 Mg Tab.er.24, 30 MG PO DAILY for 30 Days, TAB Prov:KWADWO NORRIS MD 10/05/18 Insulin Lispro (Humalog Kwikpen U-100) 100 Unit/1 Ml Insuln.pen, 20 UNITS SQ DAILY for 30 Days, EA 3 Refills INJECT 20 UNITS-QAM AND 12 UNITS-QPM Prov:KWADWO NORRIS MD 10/05/18 Lidocaine HCl/Menthol (Icy Hot 4%-1% Cream) 76.5 Gm Cream..g., 76.5 GM TP TID PRN for PAIN, #1 TUB Prov:KARAN YANCEY MD 08/15/18 Reported Medications Bogart-3 Fatty Acids/Fish Oil (Fish Oil 1,000 mg Capsule) 1 Each Capsule, 1 EACH PO DAILY, CAP 10/03/18 Ascorbic Acid* (Vitamin C*) 500 Mg Capsule.sa, 500 MG PO DAILY, CAP 10/03/18 Vitamin B Complex (Vitamin B Complex) 1 Each Capsule, 1 EACH PO DAILY, CAP 10/03/18 Cholecalciferol* (Vitamin D3*) 1,000 Unit Tablet, 1000 UNIT PO DAILY, TAB 10/03/18 Simvastatin* (Zocor*) 40 Mg Tablet, 40 MG PO QHS, #30 TAB 08/15/18 Levothyroxine Sodium* (Levothyroxine Sodium*) 25 Mcg Tablet, 25 MCG PO BEFORE BREAKFAST, #30 TAB 08/15/18 Carbidopa/Levodopa (Carbidopa-Levodopa 25-100 Tab) 1 Each Tablet, 1 EACH PO TID, TAB 08/15/18 Prednisolone Acetate* (Pred Forte*) 5 Ml Susp, 1 DROP LEFT EYE QID, EA 08/15/18 Timolol Maleate* (Timoptic*) 0.25%-5ml Opht, 1 DROP BOTH EYES BID, #1 EA 08/15/18 Allergies Allergies: Coded Allergies: No Known Allergy (Unverified , 10/03/18) PMhx/Soc History of Surgery: Yes (left cataract surgery and retina attachment and left knee surgery) Anesthesia Reaction: No Hx Neurological Disorder: Yes (parkinsons) Hx Respiratory Disorders: No Hx Cardiac Disorders: No Hx Psychiatric Problems: No Hx Miscellaneous Medical Probl: Yes (CA lymph nodes) Hx Alcohol Use: No Hx Substance Use: No Hx Tobacco Use: No Smoking Status: Never smoker FmHx Family History: No diabetes Physical Exam Vitals Vital Signs Date Temp Pulse Resp B/P (MAP) Pulse Ox O2 O2 Flow FiO2 Time Delivery Rate 10/21/18 Nasal 2 23:23 Cannula 10/21/18 99.0 76 21 122/54 95 23:21 (76) Physical Exam General: Well developed, well nourished, no acute distress Head: Normocephalic, atraumatic. Eyes: Pupils equally reactive, EOM intact ENT: Moist mucous membranes Neck: Supple, no lymphadenopathy Respiratory: Lungs clear bilaterally, no distress Cardiovascular: RRR, no murmurs, rubs, or gallops Abdominal: Soft, non-tender, non-distended, no peritoneal signs : Deferred MSK: No edema, no unilateral swelling, 5/5 strength Neurologic: Alert and oriented, moving all extremities, normal speech, no focal weakness, no cerebellar signs Skin: No rash Psych: Normal mood Result Diagram: 10/21/18 2332 10/21/18 2332 Results 24 hrs Laboratory Tests Test 10/21/18 23:32 White Blood Count 9.1 10^3/ul Red Blood Count 2.59 10^6/ul Hemoglobin 8.0 g/dl Hematocrit 24.0 % Mean Corpuscular Volume 92.7 fl Mean Corpuscular Hemoglobin 30.9 pg Mean Corpuscular Hemoglobin Concent 33.3 g/dl Red Cell Distribution Width 13.3 % Platelet Count 273 10^3/UL Mean Platelet Volume 10.1 fl Immature Granulocytes % 0.400 % Neutrophils % 70.1 % Lymphocytes % 13.0 % Monocytes % 15.8 % Eosinophils % 0.5 % Basophils % 0.2 % Nucleated Red Blood Cells % 0.0 /100WBC Immature Granulocytes # 0.040 10^3/ul Neutrophils # 6.4 10^3/ul Lymphocytes # 1.2 10^3/ul Monocytes # 1.4 10^3/ul Eosinophils # 0.1 10^3/ul Basophils # 0.0 10^3/ul Nucleated Red Blood Cells # 0.0 10^3/ul Prothrombin Time 13.1 Sec Prothrombin Time Ratio 1.0 INR International Normalized Ratio 0.98 Activated Partial Thromboplast Time 39.4 Sec Sodium Level 136 mmol/L Potassium Level 3.0 mmol/L Chloride Level 96 mmol/L Carbon Dioxide Level 31 mmol/L Anion Gap 9 Blood Urea Nitrogen 22 mg/dl Creatinine 2.33 mg/dl Est Glomerular Filtrat Rate mL/min mL/min Glucose Level 193 mg/dl Calcium Level 9.0 mg/dl Troponin I 0.036 ng/ml B-Type Natriuretic Peptide 741 PG/ML Current Medications Medications Dose Sig/Juan Start Time Status Last (Trade) Ordered Route PRN Stop Time Admin Dose Reason Admin Sodium 500 ml @ Q1H STAT 10/21/18 DC 10/21/18 Chloride 500 mls/hr IV 23:20 23:46 10/22/18 00:19 Aspirin 162 mg ONCE STAT 10/21/18 DC (Aspirin) PO 23:20 10/21/18 23:21 Ondansetron 4 mg ER BRIDGE 10/22/18 HCl (Zofran PRN IV 01:00 Inj) NAUSEA/VOMITI 10/23/18 00:59 NG 650 mg ER BRIDGE 10/22/18 Acetaminophen PRN PO 01:00 (Tylenol .MILD PAIN 10/23/18 00:59 Tab) 1-3 OR TEMP Procedures/MDM EKG, MONITORS, & DIAGNOSTIC IMAGING: EKG: I reviewed and interpreted a 12-lead EKG. Rhythm: Normal sinus rhythm ST Changes: No contiguous ST segment elevations T waves: No contiguous T wave inversions Impression: [No evidence of acute cardiac ischemia] Repeat EKG: EKG: I reviewed and interpreted a 12-lead EKG. Rhythm: Normal sinus rhythm ST Changes: No contiguous ST segment elevations T waves: No contiguous T wave inversions Impression: [No evidence of acute cardiac ischemia] Chest x-ray: I reviewed and interpreted a 1 view of the chest Mediastinum: No enlargement Cardiac silhouette: No cardiomegaly Airspace: Clear lung ocasio bilaterally without evidence of pneumothorax Bones: No evidence of fracture VQ scan is pending PROCEDURES: [None] LAB INTERPRETATION: * Indeterminate troponin and BNP MEDICAL DECISION MAKING: The patient's history, physical exam and clinical presentation is concerning for possible cardiogenic etiology and acute coronary syndrome. Consider possible CHF as well as pulmonary embolism given history and pathology of diffuse large B-cell lymphoma Based on the patient's clinical exam and history and risk factors, I have a much lower clinical concern for acute aortic dissection, pneumothorax, pneumonia, cardiac tamponade ER COURSE: * Chest pain-free. Creatinine is elevated and therefore a CTPA is not appropri ate. VQ scan has been ordered. Aspirin given prior to arrival. * Patient will be admitted for further management, rule out of ACS and pulmonary embolism. Further work-up for lymphoma indicated CONSULTATION: [None] DISPOSITION PLAN: Telemetry admission for management of chest pain to rule out acute coronary syndrome, serial enzymes, risk stratification and consideration of provocative testing CONSULTATION: Accepting care team and consultations: I discussed the current laboratory data, diagnostic imaging and emergency care provided. Admitting team: Dr. Norris Admitting team indication: Insurance directed Departure Diagnosis: Primary Impression: Chest pain Chest pain type: unspecified Qualified Codes: R07.9 - Chest pain, unspecified Additional Impression: Chronic renal insufficiency Chronic kidney disease stage: unspecified stage Qualified Codes: N18.9 - Chronic kidney disease, unspecified Condition: Stable LENORE ROBINS MD Oct 22, 2018 01:00
[2018-10-22 03:30] VITALS: Ht 165.1 cm; Wt 78.5 kg
[2018-10-22 03:51] VITALS: BP 124/58; PULSE 72; RESP 21
[2018-10-22 04:00] VITALS: BP 124/58; PULSE 74; RESP 18
[2018-10-22] MEDS ORDERED: morphine 2 MG INJ IV PRN (04:30)
[2018-10-22 07:12] VITALS: BP 147/67; PULSE 73; RESP 20
--- NOTE | 2018-10-22 09:51 | PDOCDIS ---
Discharge Instructions CONDITION [id number] Patient Condition: [id number] Good HOME CARE INSTRUCTIONS: [id number] Diet Instructions: [id number] [id number] Activity Restrictions: Vunlt3a No Restrictions FOLLOW UP/APPOINTMENTS Follow-up Plan pcp 1 week oncology in KWADWO Waters MD Oct 22, 2018 09:51
[2018-10-22 11:14] VITALS: BP 146/67; PULSE 79; RESP 20
--- NOTE | 2018-10-22 13:56 | HP ---
DATE OF ADMISSION: 10/22/2018 CHIEF COMPLAINT: Left-sided chest pain. HISTORY OF PRESENT ILLNESS: An 83-year-old male with hypertension, chronic kidney disease and recent ly diagnosed large B-cell lymphoma, presented to the Emergency Room with complaint of constant left-s ided chest pain x4 days. The patient denies exertional symptoms. No shortness of breath. No nausea , vomiting, or diaphoresis. The pain is worse at night time and sometimes pleuritic in nature. He d enies tightness or pressure. The patient was admitted with acute kidney injury about 3 weeks prior to this admission. At that kristin e, he was found to have intra-abdominal lymphadenopathy. He underwent CT-guided biopsy at that time. 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 PAST MEDICAL HISTORY: 1. Stage III chronic kidney disease. 2. Hypertension. 3. Hyperlipidemia. 4. Type 2 diabetes mellitus. 5. Recently diagnosed large B-cell lymphoma. 6. Parkinson disease. 7. Hypothyroidism. MEDICATIONS PRIOR TO ADMISSION: 1. Procardia-XL 30 mg daily. 2. Simvastatin 40 mg at bedtime. 3. Carbidopa/levodopa 25/100 one tablet 3 times daily. 4. Bicitra 30 mL t.i.d. 5. Insulin 20 units daily. 6. Levothyroxine 25 mcg daily. PHYSICAL EXAMINATION: GENERAL: Well-developed, well-nourished elderly male who is in no apparent distress. VITAL SIGNS: Stable. He is afebrile. HEENT: Extraocular muscles intact. Pupils are equal and reactive to light bilaterally. Sclerae are anicteric. Oropharynx is clear and moist. NECK: Supple, no JVD, no carotid bruits. LUNGS: Clear to auscultation bilaterally. CHEST: Nontender to palpation. CARDIAC: Regular rate and rhythm. No murmurs or gallops. ABDOMEN: Soft, nontender, nondistended, normoactive bowel sounds. EXTREMITIES: No clubbing, cyanosis, or edema. NEUROLOGIC: Grossly nonfocal. LABORATORY DATA: CBC is within normal limits. BMP shows a BUN of 22 and creatinine of 2.33. Tropon ins were 0.066 and 0.045. Chest x-ray shows no acute cardiopulmonary disease. ASSESSMENT: 1. An 83-year-old male presenting with atypical left-sided, constant, dull chest pain x4 days. The patient is at high risk of developing PE due to his underlying malignancy. 2. Recently diagnosed large B-cell lymphoma. 3. Hypertension. 4. Hyperlipidemia. 5. Type 2 diabetes mellitus. 6. Parkinson disease. 7. Hypothyroidism. 8. Stage III chronic kidney disease. PLAN: 1. Place in tele observation. 2. Proceed with a V/Q scan. 3. Resume home medications. 4. Discharge planning if VQ scan is of low probability. 5. The patient has an appointment with his oncologist in the morning. Dictated By: KWADWO ALCANTARA/YUNIEL Conf#: [id number] DID#: [id number]
--- NOTE | 2018-10-26 06:05 | DS ---
DATE OF ADMISSION: 10/22/2018 DATE OF DISCHARGE: 10/22/2018 DISCHARGE DIAGNOSES: 1. The patient is an 83-year-old male with atypical chest pain. 2. Recently diagnosed large B-cell lymphoma. 3. Hypertension. 4. Hyperlipidemia. 5. Type 2 diabetes mellitus. 6. Stage III chronic kidney disease. 7. Parkinson's disease. 8. Hypothyroid exam. HOSPITAL COURSE: The patient is an 83-year-old male with recently diagnosed large B-cell lymphoma, h ypertension, on chronic kidney disease, presented to the Emergency Room with complaint of constant le ft-sided chest pain x4 days. The patient denied any exertional symptoms. He denies shortness of shana ath, nausea, or vomiting. The patient's pain was pleuritic at times. The patient underwent a V/Q scan. The study showed low probability for pulmonary embolus. I obtaine d bilateral lower extremity venous Doppler. There was no evidence of deep vein thrombosis within the bilateral lower extremities. The patient was discharged home in a stable condition. He had an appo intment with oncology on the following day. MEDICATIONS ON DISCHARGE: 1. Carbidopa/levodopa 25/100 one tablet t.i.d. 2. Insulin 20 units subq daily. 3. Levothyroxine 25 mcg daily. 4. Nifedipine 30 mg daily. 5. Simvastatin 40 mg at bedtime. 6. Timolol eyedrop to both eyes b.i.d. DISCHARGE INSTRUCTIONS: 1. Follow up with PCP in 1 week. 2. Follow up with oncology in the morning. Dictated By: KWADWO ALCANTARA/YUNIEL Conf#: [id number] DID#: [id number]
== END 2018-10-22 16:10 | disposition home or self-care (01) ==
LOC: E/R 23:06 → 6WM 10-22 00:52
PROVIDERS: ADMIT Internal Medicine; ATTEND Internal Medicine
DX: R07.89 Other chest pain (principal); C83.30 Diffuse large B-cell lymphoma, unspecified site; I12.9 Hypertensive chronic kidney disease with stage 1 through stage 4 chronic kidney disease, or unspecified chronic kidney disease; E11.22 Type 2 diabetes mellitus with diabetic chronic kidney disease; N18.3 Chronic kidney disease, stage 3 (moderate); E78.5 Hyperlipidemia, unspecified; G20 Parkinson's disease; E03.9 Hypothyroidism, unspecified; Z79.4 Long term (current) use of insulin
CPT/HCPCS: 36415; 71045; 78582; 80048; 82550; 82553; 83880; 84484; 85025; 85610; 85730; 93005; 93970; 99285; A9540; G0378; J7040

== ENCOUNTER 2018-10-31 09:27 | Emergency (ER) | payer OTHER, MEDICAID ==
[~2018-10-31] VITALS: Ht 160 cm; Wt 81.0 kg
[~2018-10-31 09:27] MED LIST changes: -BICS PO
[2018-10-31 09:35] VITALS: Ht 160 cm; Wt 81.0 kg
[2018-10-31] MEDS ORDERED: SOD CHLORIDE 0.9% 100 ML IV STA (09:47)
--- NOTE | 2018-10-31 11:00 | ERD ---
ER Documentation Chief Complaint Chief Complaint constipation x 10 days per caregiver, pt pale HPI 83-year-old male brought in the emergency department by his customer advisor specialist for evaluation of constipation. Patient is a poor historian with a history essentially from the customer advisor specialist. I also reviewed old records. Briefly, patient was recently admitted to the hospital where he was treated for diarrhea and nonspecific abdominal pain. His complete work-up was evaluated. Since discharge, over the last 10 days, the customer advisor specialist tells me the patient's been constipated. He has had no obvious nausea or vomiting, no fevers or localizing abdominal pain. He has been able to eat. No further symptoms are noted. Specifically, there is been no blood in the stool. ROS All systems reviewed and are negative except as per history of present illness. Medications Home Meds Active Scripts Docusate Sodium* (Colace*) 100 Mg Capsule, 100 MG PO TID, #30 CAP Prov:MAURA CASTAÑEDA 10/31/18 Reported Medications Insulin Lispro (Humalog Kwikpen U-100) 100 Unit/1 Ml Insuln.pen, 12 UNIT SQ QHS, EA 10/31/18 Insulin Lispro (Humalog Kwikpen U-100) 100 Unit/1 Ml Insuln.pen, 22 UNIT SQ QAM, EA 10/31/18 Nifedipine* (Nifedipine ER*) 30 Mg Tablet.sa, 30 MG PO DAILY, TAB.SA 10/31/18 Carbidopa/Levodopa (Carbidopa-Levodopa 25-100 Tab) 1 Each Tablet, 1 EACH PO TID, TAB 10/31/18 Simvastatin (Simvastatin) 40 Mg Tablet, 40 MG PO QHS, #30 TAB 10/31/18 Docusate Sodium* (Colace*) 100 Mg Capsule, 100 MG PO DAILY, #30 CAP 10/31/18 Levothyroxine Sodium* (Levothyroxine Sodium*) 25 Mcg Tablet, 25 MCG PO BEFORE BREAKFAST, #30 TAB 10/31/18 Sodium Bicarbonate* (Sodium Bicarbonate*) 650 Mg Tablet, 650 MG PO BID, TAB 10/31/18 Acetaminophen* (Acetaminophen*) 500 MG Extra Strength Tablet, 500 MG PO Q4H PRN for PAIN AND OR ELEVATED TEMP, TAB 10/31/18 Discontinued Reported Medications Eidson-3 Fatty Acids/Fish Oil (Fish Oil 1,000 mg Capsule) 1 Each Capsule, 1 EACH PO DAILY, CAP 10/03/18 Ascorbic Acid* (Vitamin C*) 500 Mg Capsule.sa, 500 MG PO DAILY, CAP 10/03/18 Vitamin B Complex (Vitamin B Complex) 1 Each Capsule, 1 EACH PO DAILY, CAP 10/03/18 Cholecalciferol* (Vitamin D3*) 1,000 Unit Tablet, 1000 UNIT PO DAILY, TAB 10/03/18 Simvastatin* (Zocor*) 40 Mg Tablet, 40 MG PO QHS, #30 TAB 08/15/18 Levothyroxine Sodium* (Levothyroxine Sodium*) 25 Mcg Tablet, 25 MCG PO BEFORE BREAKFAST, #30 TAB 08/15/18 Carbidopa/Levodopa (Carbidopa-Levodopa 25-100 Tab) 1 Each Tablet, 1 EACH PO TID, TAB 08/15/18 Prednisolone Acetate* (Pred Forte*) 5 Ml Susp, 1 DROP LEFT EYE QID, EA 08/15/18 Timolol Maleate* (Timoptic*) 0.25%-5ml Opht, 1 DROP BOTH EYES BID, #1 EA 08/15/18 Discontinued Scripts Nifedipine (Procardia Xl) 30 Mg Tab.er.24, 30 MG PO DAILY for 30 Days, TAB Prov:KWADWO NORRIS MD 10/05/18 Insulin Lispro (Humalog Kwikpen U-100) 100 Unit/1 Ml Insuln.pen, 20 UNITS SQ DAILY for 30 Days, EA 3 Refills INJECT 20 UNITS-QAM AND 12 UNITS-QPM Prov:KWADWO NORRIS MD 10/05/18 Lidocaine HCl/Menthol (Icy Hot 4%-1% Cream) 76.5 Gm Cream..g., 76.5 GM TP TID PRN for PAIN, #1 TUB Prov:KARAN YANCEY MD 08/15/18 Allergies Allergies: Coded Allergies: No Known Allergy (Unverified , 10/31/18) PMhx/Soc History of Surgery: Yes (Left knee replacement, Left eye catarct surgery) Anesthesia Reaction: Yes Hx Neurological Disorder: Yes (parkinson's) Hx Respiratory Disorders: No Hx Cardiac Disorders: No Hx Psychiatric Problems: No Hx Miscellaneous Medical Probl: Yes (CA lymph node) Hx Alcohol Use: No Hx Substance Use: No Hx Tobacco Use: No Smoking Status: Never smoker Physical Exam Vitals Vital Signs Date Temp Pulse Resp B/P (MAP) Pulse Ox O2 O2 Flow FiO2 Time Delivery Rate 10/31/18 98.1 58 18 118/58 99 09:35 (78) Physical Exam GENERAL: Frail, elderly male in no distress HEENT: Pupils equal, round, and reactive to light. EOMI. There is no scleral icterus. NECK: C-spine is soft and supple, there is no meningismus. There is no cervical lymphadenopathy. LUNGS: Clear to auscultation bilaterally. There are no rales, wheezes or rhonchi. HEART: Regular rate and rhythm, no murmurs, clicks, rubs or gallops. ABDOMEN: Soft, non-tender, non-distended. There are bowel sounds in all four quadrants. No rebound or guarding. EXTREMITIES: There is no peripheral cyanosis or edema. No focal swelling or erythema. NEURO: The patient moves all four extremities with 5/5 strength. Cranial nerves II - XII are intact. Normal gait. Alert and following commands but with an underlying dementia SKIN: There is no apparent rash or petechiae. HEME/LYMPHATIC: There is no evidence of excessive bruising or lymphedema. PSYCHIATRIC: The patient does not appear anxious or depressed. Result Diagram: 10/31/18 1004 10/31/18 1004 Results 24 hrs Laboratory Tests Test 10/31/18 10:04 White Blood Count 5.8 10^3/ul Red Blood Count 2.62 10^6/ul Hemoglobin 8.0 g/dl Hematocrit 25.0 % Mean Corpuscular Volume 95.4 fl Mean Corpuscular Hemoglobin 30.5 pg Mean Corpuscular Hemoglobin Concent 32.0 g/dl Red Cell Distribution Width 13.3 % Platelet Count 392 10^3/UL Mean Platelet Volume 9.8 fl Immature Granulocytes % 0.200 % Neutrophils % 70.2 % Lymphocytes % 14.9 % Monocytes % 10.9 % Eosinophils % 2.8 % Basophils % 1.0 % Nucleated Red Blood Cells % 0.0 /100WBC Immature Granulocytes # 0.010 10^3/ul Neutrophils # 4.0 10^3/ul Lymphocytes # 0.9 10^3/ul Monocytes # 0.6 10^3/ul Eosinophils # 0.2 10^3/ul Basophils # 0.1 10^3/ul Nucleated Red Blood Cells # 0.0 10^3/ul Sodium Level 138 mmol/L Potassium Level 3.5 mmol/L Chloride Level 97 mmol/L Carbon Dioxide Level 36 mmol/L Anion Gap 5 Blood Urea Nitrogen 17 mg/dl Creatinine 2.13 mg/dl Est Glomerular Filtrat Rate mL/min mL/min Glucose Level 128 mg/dl Calcium Level 10.5 mg/dl Total Bilirubin 0.4 mg/dl Direct Bilirubin 0.00 mg/dl Indirect Bilirubin 0.4 mg/dl Aspartate Amino Transf (AST/SGOT) 24 IU/L Alanine Aminotransferase (ALT/SGPT) 14 IU/L Alkaline Phosphatase 63 IU/L Total Protein 6.7 g/dl Albumin 3.3 g/dl Globulin 3.40 g/dl Albumin/Globulin Ratio 0.97 Lipase 70 U/L Current Medications Medications Dose Sig/Juan Start Time Status Last (Trade) Ordered Route PRN Stop Time Admin Dose Reason Admin Sodium 100 ml @ Q1H STAT 10/31/18 DC 10/31/18 Chloride 100 mls/hr IV 09:47 10/31/18 10:14 10:46 Procedures/MDM Patient was taken to a room, seen and evaluated. Comfort measures were initiated. Diagnostic tests were ordered and reviewed. 3 LEAD RHYTHM STRIP: Normal sinus rhythm without ectopy RADIOLOGY: Reviewed with the radiologist REEVALUATION: 1050: Diagnostic tests were appreciated and discussed with the customer advisor specialist. Serial examinations of the abdomen remained benign. MEDICAL DECISION MAKIN-year-old male presents with constipation after just being treated for diarrhea. At this time, he shows evidence of an anemia, but not requiring transfusion as he is essentially asymptomatic from this. Patient has no evidence of abdominal tenderness or evidence of obstruction related to the constipation. Patient appears to be otherwise clinically comfortable and otherwise seems appropriate for discharge with no evidence of obvious ongoing intra-abdominal infection or other concerns. Departure Diagnosis: Primary Impression: Constipation Condition: Stable Patient Instructions: Constipation (Adult) Referrals: DERECK FUNG MD- (PCP) Additional Instructions: Please see your doctor this week for a recheck MAURA CASTAÑEDA Oct 31, 2018 11:00
[2018-10-31 11:14] VITALS: BP 153/72; PULSE 71; RESP 16
== END 2018-10-31 11:17 | disposition home or self-care (01) ==
LOC: E/R 09:27
DX: K59.00 Constipation, unspecified (principal); G20 Parkinson's disease; E11.9 Type 2 diabetes mellitus without complications; Z79.4 Long term (current) use of insulin; Z96.652 Presence of left artificial knee joint
CPT/HCPCS: 36415; 74018; 80053; 81003; 83690; 85025; 99284; J7040

== ENCOUNTER 2018-11-11 11:42 | Inpatient (IN) | payer OTHER, MEDICAID ==
[~2018-11-11] VITALS: Ht 170.2 cm; Wt 77.8 kg
[~2018-11-11 11:42] MED LIST changes: -ASCO500C7 PO; -CHOL100062 PO; -LIDO76.53 TP; -NIFE30TA2 PO; -OMEG-135 PO; -PRED5DRO20 LEFT EYE; -SIMV40TA2 PO; -TML25OP5 BOTH EYES; -VITA1CAP PO
[2018-11-11] MEDS ORDERED: SOD CHLORIDE 0.9% 1,000 ML IV STA (11:47)
[2018-11-11] MEDS ORDERED: DEXTROSE 50% 50 ML SYRINGE IV STA (12:16)
[2018-11-11] MEDS ORDERED: ACETAMINOPHEN 325 MG TAB PO PRN ×2 (15:00→17:00)
[2018-11-11] MEDS ORDERED: ONDANSETRON 4 MG INJ IV PRN ×2 (15:00→17:00)
[2018-11-11] MEDS: SOD CHLORIDE 0.9% 1,000 ML IV SCH (16:37)
[2018-11-11] MEDS ORDERED: DOCUSATE SODIUM 100 MG CAP PO PRN (17:00)
[2018-11-11] MEDS ORDERED: ACETAMINOPHEN 500 MG TAB PO PRN (17:00)
[2018-11-11] MEDS ORDERED: GLUCAGON 1 MG INJ IM PRN (17:00)
[2018-11-11] MEDS ORDERED: NACL 0.9% 3 ML SYG IV SCH (17:00)
[2018-11-11] MEDS ORDERED: DEXTROSE 50% 50 ML SYRINGE IV PRN ×2 (17:00)
[2018-11-11] MEDS ORDERED: GLUCOSE GEL 15 GRAM TUBE PO PRN ×2 (17:00)
[2018-11-11] MEDS ORDERED: GLUCOSE GEL 15 GRAM TUBE BUCCAL PRN (17:00)
[2018-11-11] MEDS: INSULIN ASPART [NOVOLOG] 3 ML PEN SC SCH ×2 (18:00→21:00)
[2018-11-11] MEDS ORDERED: POTASSIUM CHLORIDE (SR) 20 MEQ TAB PO STA (19:27)
[2018-11-11] MEDS ORDERED: BISACODYL 10 MG SUPP PR ONE (20:00)
[2018-11-11] MEDS: POLYETHYLENE GLYCOL 17 GM PACKET GTB SCH (20:00)
[2018-11-11] MEDS: NA BICARBONATE 650 MG TAB PO SCH (21:00)
[2018-11-11] MEDS: FAMOTIDINE 20 MG TAB PO SCH (21:00)
[2018-11-11] MEDS ORDERED: ATORVASTATIN 20 MG TAB PO SCH (21:00)
[2018-11-11 22:37] VITALS: Ht 170.2 cm; Wt 77.8 kg
[2018-11-11] MEDS: CARBIDOPA/LEVODOPA (25/100) TAB PO SCH (23:27)
[2018-11-11] MEDS: DOCUSATE SODIUM 100 MG CAP PO SCH (23:28)
[2018-11-11] MEDS: NIFEdipine (XL) 30 MG TAB PO SCH (23:44)
[2018-11-12] VITALS: BP 163/74; PULSE 89; RESP 20
[2018-11-12 04:00] VITALS: BP 153/70; PULSE 80; RESP 19
[2018-11-12] MEDS ORDERED: LEVOTHYROXINE 25 MCG TAB PO SCH (07:00)
[2018-11-12] MEDS: INSULIN ASPART [NOVOLOG] 3 ML PEN SC SCH ×3 (07:56→17:34)
[2018-11-12 08:08] VITALS: BP 154/71; RESP 18
[2018-11-12] MEDS: FAMOTIDINE 20 MG TAB PO SCH (08:16)
[2018-11-12] MEDS: NIFEdipine (XL) 30 MG TAB PO SCH (08:16)
[2018-11-12] MEDS: DOCUSATE SODIUM 100 MG CAP PO SCH ×2 (08:16→13:24)
[2018-11-12] MEDS: CARBIDOPA/LEVODOPA (25/100) TAB PO SCH ×2 (08:16→13:24)
[2018-11-12] MEDS: NA BICARBONATE 650 MG TAB PO SCH (08:17)
[2018-11-12] MEDS: POLYETHYLENE GLYCOL 17 GM PACKET GTB SCH (08:17)
[2018-11-12] MEDS: SOD CHLORIDE 0.9% 1,000 ML IV SCH ×2 (08:19→12:04)
[2018-11-12 12:21] VITALS: BP 161/74; PULSE 86; RESP 18
[2018-11-12] MEDS ORDERED: SOD FERRIC GLUC COMPLX 125 MG in SOD CHLORIDE 0.9% 100 ML IVPB SCH (13:00)
[2018-11-12 15:20] VITALS: BP 141/65; PULSE 81; RESP 18
[2018-11-12] MEDS ORDERED: MAGNESIUM SULFATE 4 GM/100 ML 100 ML IVPB ONE (16:00)
== END 2018-11-12 18:42 | disposition home or self-care (01) | DRG 638 ==
LOC: E/R 11:42 → 6WM 14:56 → CANRESERV 20:57
PROVIDERS: ADMIT Internal Medicine; ATTEND Internal Medicine
DX: E11.649 Type 2 diabetes mellitus with hypoglycemia without coma (principal); C85.90 Non-Hodgkin lymphoma, unspecified, unspecified site; J90 Pleural effusion, not elsewhere classified; R55 Syncope and collapse; I12.9 Hypertensive chronic kidney disease with stage 1 through stage 4 chronic kidney disease, or unspecified chronic kidney disease; E11.22 Type 2 diabetes mellitus with diabetic chronic kidney disease; N18.3 Chronic kidney disease, stage 3 (moderate); G20 Parkinson's disease; D50.9 Iron deficiency anemia, unspecified; E87.6 Hypokalemia; K59.00 Constipation, unspecified
CPT/HCPCS: 36415; 70450; 71045; 71250; 74176; 78582; 80048; 80053; 82962; 83036; 83540; 83735; 84100; 84443; 84484; 85025; 85610; 85730; 87081; 93005; 93306; 93880; 96374; A9540; J1815; J2916; J7030

== ENCOUNTER 2018-12-12 16:49 | Inpatient (IN) | payer OTHER, MEDICAID ==
[~2018-12-12] VITALS: Ht 170.2 cm; Wt 74.1 kg
[~2018-12-12 16:49] MED LIST changes: -CARB1TAB34 PO; -MAGN400T28 PO; +MAGN400T8 PO; +MEGE40TA PO; -NAPR-685 PO; +SIMV40TA19 PO; -SIMV40TA3 PO; -SODI650T PO
[2018-12-12] MEDS ORDERED: SODIUM CHLORIDE 0.9% 1L BAG IV* STA (18:31)
[2018-12-12] MEDS ORDERED: ACETAMINOPHEN 325 MG TAB PO PRN ×2 (19:00→23:00)
[2018-12-12] MEDS ORDERED: ONDANSETRON 4 MG INJ IV PRN (19:00)
[2018-12-12] MEDS ORDERED: morphine 4 MG/ML VIAL IV STA (21:05)
[2018-12-12] MEDS ORDERED: MAGNESIUM HYDROXIDE 30ML CUP PO PRN (23:00)
[2018-12-12] MEDS: FAMOTIDINE 20 MG TAB PO SCH (23:00)
[2018-12-12] MEDS ORDERED: NON-FORMULARY/PATIENT OWN MED (Insulin Lispro (Humalog Kwikpen U-100) 5 UNIT) SQ SCH (23:00)
[2018-12-12] MEDS ORDERED: ONDANSETRON 4 MG TAB PO PRN (23:00)
[2018-12-12] MEDS ORDERED: DOCUSATE SODIUM 100 MG CAP PO PRN (23:00)
[2018-12-12] MEDS ORDERED: NACL 0.9% 3 ML SYG IV SCH (23:00)
[2018-12-12] MEDS: MAGNESIUM OXIDE 400 MG TAB PO SCH (23:00)
[2018-12-12] MEDS ORDERED: ACETAMINOPHEN 500 MG TAB PO PRN (23:00)
[2018-12-12] MEDS: HEPARIN 5,000 UNIT/1 ML VIAL SC SCH (23:40)
[2018-12-12] MEDS: SOD CHLORIDE 0.9% 1,000 ML IV SCH (23:40)
[2018-12-13] VITALS (12 sets, daily range): BP systolic 136–190; BP diastolic 61–94; PULSE 69–108; RESP 18–20; Ht 170.2 cm; Wt 74.1 kg
[2018-12-13] MEDS ORDERED: LORAZEPAM 2 MG INJ IV ONE (04:50)
[2018-12-13] MEDS: hydrALAzine 20 MG INJ IV PRN ×3 (06:17→16:48)
[2018-12-13] MEDS: LEVOTHYROXINE 25 MCG TAB PO SCH (07:00)
[2018-12-13] MEDS: INSULIN ASPART [NOVOLOG] 3 ML PEN SC SCH ×4 (08:06→17:40)
[2018-12-13] MEDS: MAGNESIUM OXIDE 400 MG TAB PO SCH ×2 (09:00→20:26)
[2018-12-13] MEDS: FAMOTIDINE 20 MG TAB PO SCH (09:00)
[2018-12-13] MEDS: MEGESTROL 40 MG TAB PO SCH ×2 (09:00→20:27)
[2018-12-13] MEDS: CARBIDOPA/LEVODOPA (25/100) TAB PO SCH ×4 (09:00→20:27)
[2018-12-13] MEDS: DOCUSATE SODIUM 100 MG CAP PO SCH (09:00)
[2018-12-13] MEDS: HEPARIN 5,000 UNIT/1 ML VIAL SC SCH ×2 (09:00→20:32)
[2018-12-13] MEDS: NIFEdipine (XL) 30 MG TAB PO SCH (09:00)
[2018-12-13] MEDS: SOD CHLORIDE 0.9% 1,000 ML IV SCH (10:09)
[2018-12-13] MEDS: POTASSIUM CHLORIDE 100 ML IVPB SCH ×2 (10:35→13:02)
[2018-12-13] MEDS ORDERED: PAMIDRONATE 90 MG in SOD CHLORIDE 0.9% 500 ML IV ONE (11:00)
[2018-12-13] MEDS ORDERED: POTASSIUM CHLORIDE 30 MEQ in SOD CHLORIDE 0.45% 1,000 ML IV SCH (12:30)
[2018-12-13] MEDS ORDERED: DEXTROSE 5%-0.9% NACL 1,000 ML IV SCH (12:30)
[2018-12-13] MEDS: POTASSIUM CHLORIDE 30 MEQ in DEXTROSE 5%-0.9% NACL 1,000 ML IV SCH (18:35)
[2018-12-13] MEDS: ATORVASTATIN 20 MG TAB PO SCH (20:26)
[2018-12-13] MEDS ORDERED: LIDOCAINE 5% PATCH TD ONE (21:00)
[2018-12-13] MEDS ORDERED: NON-FORMULARY/PATIENT OWN MED (Simvastatin 40 MG) PO SCH (21:00)
[2018-12-14] VITALS (13 sets, daily range): BP systolic 151–181; BP diastolic 65–80; PULSE 92–101; RESP 17–24
[2018-12-14] MEDS: hydrALAzine 20 MG INJ IV PRN ×3 (03:23→18:51)
[2018-12-14] MEDS: POTASSIUM CHLORIDE 30 MEQ in DEXTROSE 5%-0.9% NACL 1,000 ML IV SCH (06:17)
[2018-12-14] MEDS: LEVOTHYROXINE 25 MCG TAB PO SCH (07:00)
[2018-12-14] MEDS: INSULIN ASPART [NOVOLOG] 3 ML PEN SC SCH ×5 (07:25→20:32)
[2018-12-14] MEDS: HEPARIN 5,000 UNIT/1 ML VIAL SC SCH ×2 (08:32→20:33)
[2018-12-14] MEDS: FAMOTIDINE 20 MG TAB PO SCH (08:33)
[2018-12-14] MEDS: MAGNESIUM OXIDE 400 MG TAB PO SCH ×2 (08:33→20:14)
[2018-12-14] MEDS: MEGESTROL 40 MG TAB PO SCH ×2 (08:33→20:14)
[2018-12-14] MEDS: DOCUSATE SODIUM 100 MG CAP PO SCH (08:33)
[2018-12-14] MEDS: NIFEdipine (XL) 30 MG TAB PO SCH (08:33)
[2018-12-14] MEDS: CARBIDOPA/LEVODOPA (25/100) TAB PO SCH ×4 (08:34→20:14)
[2018-12-14] MEDS: CALCITONIN SALMON INJ 200 UNITS/ML SYG SC SCH (10:20)
[2018-12-14] MEDS: ACETAMINOPHEN 650 MG SUPP PR PRN ×2 (12:01→23:37)
[2018-12-14] MEDS: D5W-0.45 NACL + KCL 20 MEQ 1,000 ML IV SCH (12:18)
[2018-12-14] MEDS ORDERED: DEXTROSE 50% 50 ML SYRINGE IV PRN ×2 (12:30)
[2018-12-14] MEDS ORDERED: GLUCOSE GEL 15 GRAM TUBE PO PRN ×2 (12:30)
[2018-12-14] MEDS ORDERED: GLUCOSE GEL 15 GRAM TUBE BUCCAL PRN (12:30)
[2018-12-14] MEDS ORDERED: GLUCAGON 1 MG INJ IM PRN (12:30)
[2018-12-14] MEDS: ATORVASTATIN 20 MG TAB PO SCH (20:14)
[2018-12-14] MEDS: INSULIN GLARGINE [LANTus] (100 UNITS/ML) SYG SC SCH (20:33)
[2018-12-14] MEDS: HALOPERIDOL 5 MG INJ IM PRN (23:38)
[2018-12-15] VITALS (13 sets, daily range): BP systolic 149–181; BP diastolic 73–87; PULSE 88–102; RESP 20–24
[2018-12-15] MEDS: D5W-0.45 NACL + KCL 20 MEQ 1,000 ML IV SCH ×2 (01:46→21:00)
[2018-12-15] MEDS: hydrALAzine 20 MG INJ IV PRN ×3 (01:46→15:44)
[2018-12-15] MEDS: INSULIN ASPART [NOVOLOG] 3 ML PEN SC SCH ×6 (01:58→22:44)
[2018-12-15] MEDS: LEVOTHYROXINE 25 MCG TAB PO SCH (06:13)
[2018-12-15] MEDS: MEGESTROL 40 MG TAB PO SCH ×2 (09:00→21:00)
[2018-12-15] MEDS: FAMOTIDINE 20 MG TAB PO SCH (09:00)
[2018-12-15] MEDS: NIFEdipine (XL) 30 MG TAB PO SCH (09:00)
[2018-12-15] MEDS: DOCUSATE SODIUM 100 MG CAP PO SCH (09:00)
[2018-12-15] MEDS: CARBIDOPA/LEVODOPA (25/100) TAB PO SCH ×4 (09:00→21:00)
[2018-12-15] MEDS: MAGNESIUM OXIDE 400 MG TAB PO SCH ×2 (09:00→21:00)
[2018-12-15] MEDS: CALCITONIN SALMON INJ 200 UNITS/ML SYG SC SCH (09:11)
[2018-12-15] MEDS: HEPARIN 5,000 UNIT/1 ML VIAL SC SCH ×2 (09:26→22:43)
[2018-12-15] MEDS: ACETAMINOPHEN 650 MG SUPP PR PRN ×2 (10:20→17:55)
[2018-12-15] MEDS: HALOPERIDOL 5 MG INJ IM PRN (10:20)
[2018-12-15] MEDS ORDERED: FUROSEMIDE 40 MG INJ IV ONE (18:30)
[2018-12-15] MEDS: ATORVASTATIN 20 MG TAB PO SCH (21:00)
[2018-12-15] MEDS: INSULIN GLARGINE [LANTus] (100 UNITS/ML) SYG SC SCH (22:44)
[2018-12-16] VITALS (8 sets, daily range): BP systolic 123–196; BP diastolic 63–87; PULSE 76–92; RESP 18–21
[2018-12-16] MEDS: D5W-0.45 NACL + KCL 20 MEQ 1,000 ML IV SCH ×2 (01:41→18:44)
[2018-12-16] MEDS: INSULIN ASPART [NOVOLOG] 3 ML PEN SC SCH ×6 (02:03→22:14)
[2018-12-16] MEDS: LEVOTHYROXINE 25 MCG TAB PO SCH (06:13)
[2018-12-16] MEDS: hydrALAzine 20 MG INJ IV PRN ×2 (08:16→12:42)
[2018-12-16] MEDS: ACETAMINOPHEN 650 MG SUPP PR PRN ×3 (08:21→21:30)
[2018-12-16] MEDS: HEPARIN 5,000 UNIT/1 ML VIAL SC SCH ×2 (08:38→21:00)
[2018-12-16] MEDS: DOCUSATE SODIUM 100 MG CAP PO SCH (09:00)
[2018-12-16] MEDS: CARBIDOPA/LEVODOPA (25/100) TAB PO SCH ×4 (09:00→21:00)
[2018-12-16] MEDS: ALLOPURINOL 100 MG TAB PO SCH (09:00)
[2018-12-16] MEDS: MEGESTROL 40 MG TAB PO SCH ×2 (09:00→21:00)
[2018-12-16] MEDS: MAGNESIUM OXIDE 400 MG TAB PO SCH ×2 (09:00→21:00)
[2018-12-16] MEDS: NIFEdipine (XL) 30 MG TAB PO SCH (09:00)
[2018-12-16] MEDS: FAMOTIDINE 20 MG TAB PO SCH (09:00)
[2018-12-16] MEDS ORDERED: POTASSIUM CHLORIDE 100 ML IVPB ONE (10:00)
[2018-12-16] MEDS ORDERED: FUROSEMIDE 20 MG INJ IV ONE (12:30)
[2018-12-16] MEDS: CALCITONIN SALMON INJ 200 UNITS/ML SYG SC SCH (12:43)
[2018-12-16] MEDS: HALOPERIDOL 5 MG INJ IM PRN ×2 (12:55→21:11)
[2018-12-16] MEDS: LABETALOL HCL 20MG INJ IV SCH ×2 (17:35→22:25)
[2018-12-16] MEDS: ATORVASTATIN 20 MG TAB PO SCH (21:00)
[2018-12-16] MEDS: INSULIN GLARGINE [LANTus] (100 UNITS/ML) SYG SC SCH (22:14)
[2018-12-17] MEDS: INSULIN ASPART [NOVOLOG] 3 ML PEN SC SCH ×6 (01:18→21:23)
[2018-12-17 04:00] VITALS: BP 166/71; PULSE 72; RESP 18
[2018-12-17] MEDS: ACETAMINOPHEN 650 MG SUPP PR PRN ×2 (04:09→15:51)
[2018-12-17] MEDS: LABETALOL HCL 20MG INJ IV SCH ×3 (05:48→21:16)
[2018-12-17] MEDS: LEVOTHYROXINE 25 MCG TAB PO SCH (06:22)
[2018-12-17 07:40] VITALS: BP 148/67; PULSE 70; RESP 18
[2018-12-17] MEDS: CARBIDOPA/LEVODOPA (25/100) TAB PO SCH ×4 (09:00→20:56)
[2018-12-17] MEDS: NIFEdipine (XL) 30 MG TAB PO SCH (09:00)
[2018-12-17] MEDS: ALLOPURINOL 100 MG TAB PO SCH (09:00)
[2018-12-17] MEDS: MEGESTROL 40 MG TAB PO SCH ×2 (09:00→20:55)
[2018-12-17] MEDS: FAMOTIDINE 20 MG TAB PO SCH (09:00)
[2018-12-17] MEDS: DOCUSATE SODIUM 100 MG CAP PO SCH (09:00)
[2018-12-17] MEDS: MAGNESIUM OXIDE 400 MG TAB PO SCH ×2 (09:00→20:55)
[2018-12-17] MEDS: D5W-0.45 NACL + KCL 20 MEQ 1,000 ML IV SCH (09:06)
[2018-12-17] MEDS: CALCITONIN SALMON INJ 200 UNITS/ML SYG SC SCH (09:32)
[2018-12-17] MEDS: HEPARIN 5,000 UNIT/1 ML VIAL SC SCH ×2 (09:38→21:22)
[2018-12-17] MEDS ORDERED: POTASSIUM CHLORIDE (SR) 10 MEQ TAB PO ONE (10:00)
[2018-12-17 11:45] VITALS: BP 186/80; PULSE 71; RESP 20
[2018-12-17 15:37] VITALS: BP 161/88; PULSE 70; RESP 18
[2018-12-17] MEDS: DEXTROSE 5%-0.45% NACL 1,000 ML IV SCH (15:51)
[2018-12-17 20:00] VITALS: BP 176/73; PULSE 73; RESP 18
[2018-12-17] MEDS: ATORVASTATIN 20 MG TAB PO SCH (20:55)
[2018-12-17] MEDS: INSULIN GLARGINE [LANTus] (100 UNITS/ML) SYG SC SCH (21:22)
[2018-12-17 23:52] VITALS: BP 163/72; PULSE 67; RESP 18
[2018-12-18] MEDS: INSULIN ASPART [NOVOLOG] 3 ML PEN SC SCH ×3 (01:00→09:01)
[2018-12-18 03:01] VITALS: BP 154/68; PULSE 79; RESP 18
[2018-12-18] MEDS: LEVOTHYROXINE 25 MCG TAB PO SCH (06:28)
[2018-12-18] MEDS: DEXTROSE 5%-0.45% NACL 1,000 ML IV SCH (06:30)
[2018-12-18] MEDS: LABETALOL HCL 20MG INJ IV SCH (06:50)
[2018-12-18 07:26] VITALS: BP 160/77; PULSE 68; RESP 18
[2018-12-18] MEDS: ALLOPURINOL 100 MG TAB PO SCH (09:00)
[2018-12-18] MEDS: MAGNESIUM OXIDE 400 MG TAB PO SCH (09:00)
[2018-12-18] MEDS: HEPARIN 5,000 UNIT/1 ML VIAL SC SCH (09:00)
[2018-12-18] MEDS: FAMOTIDINE 20 MG TAB PO SCH (09:00)
[2018-12-18] MEDS: NIFEdipine (XL) 30 MG TAB PO SCH (09:00)
[2018-12-18] MEDS: DOCUSATE SODIUM 100 MG CAP PO SCH (09:00)
[2018-12-18] MEDS: CARBIDOPA/LEVODOPA (25/100) TAB PO SCH (09:00)
[2018-12-18] MEDS: MEGESTROL 40 MG TAB PO SCH (09:00)
[2018-12-18] MEDS: ACETAMINOPHEN 650 MG SUPP PR PRN (11:30)
== END 2018-12-18 13:10 | disposition hospice, home (50) | DRG 840 ==
LOC: E/R 16:49 → TEL 18:55
PROVIDERS: ADMIT Internal Medicine; ATTEND Internal Medicine
PROC: 30233N1 Transfusion of Nonautologous Red Blood Cells into Peripheral Vein, Percutaneous Approach (ICD-10-PCS; principal; 2018-12-15)
DX: C83.33 Diffuse large B-cell lymphoma, intra-abdominal lymph nodes (principal); G93.41 Metabolic encephalopathy; E43 Unspecified severe protein-calorie malnutrition; N17.9 Acute kidney failure, unspecified; E83.52 Hypercalcemia; G20 Parkinson's disease; D63.0 Anemia in neoplastic disease; E11.9 Type 2 diabetes mellitus without complications; D63.1 Anemia in chronic kidney disease; E86.0 Dehydration; Z78.1 Physical restraint status; N18.3 Chronic kidney disease, stage 3 (moderate); I12.9 Hypertensive chronic kidney disease with stage 1 through stage 4 chronic kidney disease, or unspecified chronic kidney disease; E03.9 Hypothyroidism, unspecified; E78.5 Hyperlipidemia, unspecified; E87.6 Hypokalemia; Z66 Do not resuscitate; Z96.652 Presence of left artificial knee joint; Z79.4 Long term (current) use of insulin
CPT/HCPCS: 36415; 36430; 71045; 80048; 80053; 81001; 82550; 82962; 83036; 83605; 83615; 84443; 84484; 84560; 85025; 85610; 85730; 86850; 86900; 86901; 86920; 87086; 92526; 92610; 93005; 97162; J2430; J0360; J1630; J1644; J1815; J1940; J2060; J2270; J2405; J3480; J7030; J7040; J7042; P9016